=== PATIENT | female | born 1985 | race Caucasian/White ===

== ENCOUNTER 2022-04-05 12:42 | Outpatient (REF) | payer MEDICAID, SELFPAY | END 2022-04-05 12:43 | disposition home or self-care (01) | LOC: HO.SH 12:42 | PROVIDERS: Visit Provider Nurse Practitioner Family | DX: H93.293 Other abnormal auditory perceptions, bilateral (principal) | CPT/HCPCS: 92557; 92567 ==

== ENCOUNTER 2022-04-09 21:30 | Emergency (ER) | payer MEDICAID, SELFPAY ==
[2022-04-09 21:57] VITALS: BP 120/84; BP 138/90; PULSE 109; PULSE 96; RESP 16; TEMP 36.7; O2SAT 98; BMI 33.7
--- OUTSIDE RECORDS SUMMARY | 2022-04-09 22:09 | XMS_ITS | Continuity of Care Document ---
:1985 Author Organization [facility] nter Address [address] [place] [address]- Care Team Providers Name Role Phone Not on Staff, PCP Primary Care Physician Unavailable [place] [facility] [place](s[place] 01/29/21 - 01/30/[address] [address]- Encounter Diagnosis Status epilepticus (Final) - 01/30/21 Prolonged QT interval (Final) - 01/30/21 Facial contusion (Final) - 01/30/21 Noncompliance with medication regimen (Final) - 01/30/21 Discharge Disposition: Transferred to short-term general hospit Attending Physician: Michael Jarvis MD Admitting Physician: Michael Jarvis MD Referring Physician: Not on Staff, Referring MD Allergies, Adverse Reactions, Alerts Substance Reaction Severity Status Vicodin Active Percocet 5/325 Active Medications Dilantin 100 mg oral capsule, extended release 2 capsule = 200 mg, By Mouth, 2 times a day, # 120 capsule, 0 Refills, Maintenance, 06/29/19 0:31:00EDT, ER Capsule, [facility], 163, cm, 06/28/19 23:16:00 EDT, Height, 91, kg, 06/28/19 23:16:00 EDT, Dry Weight Start Date: 06/29/19 Status: Ordered Problem List Condition Effective Dates Status Health Status Informant Seizures(Confirmed) Active Results Radiology Reports Exam Date Time Procedure Performing Provider Status 01/30/21 3:04 AM Chest Portable Erica Dimas (Anay williamson) Notes:(Chest Portable) Reason For Exam: Shortness of BreathRESULT: Chest Portable Chest Portable Hx of Present Illness: many seizures tonight, total of 10 versed en route by EMS; Reason: Shortness of Breath; Clinical Question(s): CHF COMPARISON: None. FINDINGS: LINES AND TUBES: Endotracheal tube tip is approximately 0.8 cm above the nancy. Enteric tube courses below the hemidiaphragm into the stomach and off of this image inferiorly. LUNGS AND PLEURA: The lungs are hypoinflated with resultant bronchovascular crowding. Left retrocardiac opacity likelyrepresents atelectasis in the setting of low lung volumes. No pleural effusion. No pneumothorax. HEART, MEDIASTINUM AND ARY: Heart is normal in size. Normal upper mediastinal and hilar contour. BONES AND SOFT TISSUES: No acute abnormality. IMPRESSION: Endotracheal tube tip 0.8 cm above the nancy. Recommend withdrawal by at least 2-3 cm. Notification was sent to the clinical team on subsequent chest x-ray on 01/30/2021 regarding endotracheal tube position. WSN: [id number] Ordering Physician: Michael Jarvis Dictated By: Keila Lorenzo MD Dictated Date/Time: 01/30/21 8:19 am Reviewed By: Keila Lorenzo MD Signed By: Keila Lorenzo MD Signed Date/Time: 01/30/21 8:19 am Transcribed By: KATHIE Transcribed Date/Time: 01/30/21 8:17 am Vital Signs Most recent to oldest 1 2 3 [Reference Range]: Height 163 cm (01/29/21 11:53 PM) Weight 86.5 kg (01/29/21 11:53 PM) Oxygen Saturation [94-100 100 % 96 % 100 % %] (01/30/21 3:02 AM) (01/30/21 2:45 AM) (01/30/21 2:2 8 AM) Pulse Rate [55-90 bpm] 105 bpm 98 bpm 99 bpm *H* *H* *H* (01/30/21 2:28 AM) (01/30/21 2:00 AM) (01/30/21 1:1 5 AM) Blood Pressure 114/91 mm Hg 109/90 mm Hg 97/57 mm Hg [90-138/55-84 mm Hg] (01/30/21 3:02 AM) (01/30/21 2:28 AM) ( 1 2:00 AM) Respiratory Rate [16-30 18 br/min 24 br/min 24 br/mi n br/min] (01/30/21 3:02 AM) (01/30/21 2:28 AM) (01/30/21 1:1 5 AM) Temperature [96.8-100.4 97.9 DegF DegF] (01/29/21 11:53 PM) Mode of Delivery (Oxygen) Ventilator Other: bag mask Room a ir (01/30/21 3:02 AM) (01/30/21 2:28 AM) (01/30/21 2:0 0 AM) Temperature Route Oral (01/29/21 11:53 PM) Dry Weight 86.5 kg (01/29/21 11:53 PM) Weight Obtained Via Patient/family stated (01/29/21 11:53 PM)
--- OUTSIDE RECORDS SUMMARY | 2022-04-09 22:09 | XMS_ITS | Continuity of Care Document ---
:1985 Author Organization [facility] Address [address] [place] [address]- Care Team Providers Name Role Phone Not on Staff, PCP Primary Care Physician Unavailable Encounter [facility] Date(s): 01/30/21 - 02/01/[address] [address] Discharge Disposition: A-D/C Home Attending Physician: Lolly Suarez DO Admitting Physician: Melody Blair MD Referring Physician: Not on Staff, Referring MD Allergies, Adverse Reactions, Alerts Substance Reaction Severity Status Vicodin Active Percocet 5/325 Active Medications Keppra 500 mg oral tablet 1.5 tablet = 750 mg, By Mouth, Every 12 hours, # 90 tablet, 2 Refills, Maintenance, 02/01/21 12:13:00 EST, Tablet, [facility], Partial fill upon patient request if the prescription is fora schedule II opioid drug., 163, cm, 01/29/21 23:... Start Date: 02/01/21 Stop Date: 05/02/21 Status: Ordered Problem List Condition Effective Dates Status Health Status Informant Seizures(Confirmed) Active Results Radiology Reports Exam Date Time Procedure Performing Provider Status 01/30/21 6:37 AM Chest Portable Nadeem Nicholas (Verified) Notes:(Chest Portable) Reason For Exam: Tube PlacementRESULT: Chest Portable Chest Portable Reason: Tube Placement; Clinical Question(s): Tube Placement COMPARISON: 01/30/2021, 08/27/2008 FINDINGS: LINES AND TUBES: Endotracheal tube tip is approximately 0.9 cm above the nancy. Enteric tube courses below the hemidiaphragm into the stomach and off of the image inferiorly. LUNGS AND PLEURA: Low lung volumes. Improved aeration in the left lung base compared with most recent prior. No pleural effusion. No pneumothorax. HEART, MEDIASTINUM AND ARY: Heart is normal in size. Normal upper mediastinal and hilar contour. BONES AND SOFT TISSUES: No acute abnormality. IMPRESSION: Endotracheal tube tip remains low at 0.9 cm above the nancy. Recommend repositioning, withdrawal byapproximately 2-3 cm. Low lung volumes. Improved left basilar atelectasis. A [place] message has been communicated via the [employer] system on 01/30/2021 8:21 AM, Message ID [id number]. WSN: [id number] Ordering Physician: Joaquim Wyman Dictated By: Keila Lorenzo MD Dictated Date/Time: 01/30/21 8:21 am Reviewed By: Keila Lorenzo MD Signed By: Keila Lorenzo MD Signed Date/Time: 01/30/21 8:21 am Transcribed By: KATHIE Transcribed Date/Time: 01/30/21 8:19 am Vital Signs Most recent to oldest 1 2 3 [Reference Range]: Weight 86.5 kg 87.0 kg (01/30/21 9:22 AM) (01/30/21 5:00 AM) Oxygen Saturation [94-100 %] 98 % 98 % 99 % (02/01/21 11:18 AM) (02/01/21 8:09 AM) (02/01/21 12 :33 AM) Pulse Rate [55-90 bpm] 92 bpm 87 bpm 91 bpm *H* (02/01/21 8:09 AM) *H* (02/01/21 11:18 AM) (02/01/21 12:3 3 AM) Blood Pressure [90-138/55-84 118/76 mm Hg 106/58 mm Hg 113 /68 mm Hg mm Hg] (02/01/21 11:18 AM) (02/01/21 8:09 AM) (02/01/21 12 :33 AM) Respiratory Rate [16-30 16 br/min 17 br/min 19 br/mi n br/min] (02/01/21 11:18 AM) (02/01/21 8:09 AM) (02/01/21 12 :33 AM) Temperature [96.8-100.4 97.7 DegF 97.4 DegF 98.1 Deg F DegF] (02/01/21 11:18 AM) (02/01/21 8:09 AM) (02/01/21 12 :33 AM) Liters per Minute 2 L/min 2 L/min 2 L/min (01/31/21 1:00 PM) (01/31/21 12:00 PM) (01/31/21 11 :00 AM) Mode of Delivery (Oxygen) Room air Room air Room a ir (02/01/21 11:18 AM) (02/01/21 8:09 AM) (02/01/21 12 :33 AM) Blood pressure sites Arm, left Arm, left Arm, left (02/01/21 11:18 AM) (02/01/21 8:09 AM) (02/01/21 12 :33 AM) Temperature Route Temporal Temporal Temporal (02/01/21 11:18 AM) (02/01/21 8:09 AM) (02/01/21 12 :33 AM) Weight Obtained Via Bed scale Bed scale (01/30/21 9:22 AM) (01/30/21 5:00 AM)
--- OUTSIDE RECORDS SUMMARY | 2022-04-09 22:09 | XMS_ITS | Continuity of Care Document ---
:1985 Author Organization [facility] nter Address [address] [place] [address]- Care Team Providers Name Role Phone Not on Staff, PCP Primary Care Physician Unavailable Encounter [facility] [place] Date(s): 04/04/19 - 04/04/[address] [address] [phone] Encounter Diagnosis Ingrown left big toenail (Final) - 04/04/19 Hx of seizure disorder (Final) - 04/04/19 History of depression (Final) - 04/04/19 Discharge Disposition: A-D/C Home Attending Physician: Omid Silva MD Admitting Physician: Omid Silva MD Referring Physician: Not on Staff, Referring MD Allergies, Adverse Reactions, Alerts Substance Reaction Severity Status Vicodin Active Percocet 5/325 Active Medications CeleXA 20 mg oral tablet 20 mg, 1, tablet, By Mouth, Daily, # 30 tablet, Refills 0, Tot. Refills 0, Maintenance, 04/04/19 14:15:00 EST, Route to Pharmacy Electronically, [facility], 163, cm, 04/04/19 12:37:00 EST, Height, 96.9, kg, 04/04/19 12:37:00 EST, Dry Weight Start Date: 04/04/19 Status: OrderedCelexa Tablet 20, mg, By Mouth, Daily, 0, 0, 07/24/06 13:11:12, [id number] Start Date: 07/24/06 Status: OrderedDilantin 100 mg oral capsule, extended release 2 capsule = 200 mg, By Mouth, 2 times a day, 0 Refills, Maintenance, 04/04/19 12:42:00 EST Start Date: 04/04/19 Status: OrderedDilantin 100 mg oral capsule, extended release 1 capsule = 100 mg, By Mouth, 2 times a day, # 60 capsule, 0 Refills, Maintenance, 04/04/19 14:15:00EST, [facility], 163, cm, 04/04/19 12:37:00 EST, Height, 96.9, kg, 04/04/19 12:37:00 EST,Dry Weight Start Date: 04/04/19 Stop Date: 05/04/19 Status: OrderedKeflex monohydrate 500 mg oral capsule 1 capsule = 500 mg, By Mouth, 4 times a day, # 28 capsule, 0 Refills, Maintenance, 04/04/19 14:14:00EST, Capsule, [facility], 163, cm, 04/04/19 12:37:00 EST, Height, 96.9, kg, 04/04/19 12:37:00 EST, Dry Weight Start Date: 04/04/19 Stop Date: 04/11/19 Status: Orderedmupirocin 2% topical ointment 1 application, Topically, 3 times a day, for 5 days, # 15 Gm, 0 Refills, Acute 04/09/19 14:14:00 EST, 04/04/19 14:14:00 EST, Ointment, [facility], 1 application Topically 3 times a day,x5 days, 163, cm, 04/04/19 12:37:00 EST, Height, 96.9,... Start Date: 04/04/19 Stop Date: 04/09/19 Status: Ordered Vital Signs Most recent to oldest [Reference Range]: 1 Height 163 cm (04/04/19 12:37 PM) Weight 96.9 kg (04/04/19 12:37 PM) Temperature Route Oral (04/04/19 12:37 PM) Dry Weight 96.9 kg (04/04/19 12:37 PM)
--- OUTSIDE RECORDS SUMMARY | 2022-04-09 22:09 | XMS_ITS | Continuity of Care Document ---
:1985 Author Organization [facility] Address [address] [place] [address], [address] [facility], [address] [place] [address]- Care Team Providers Name Role Phone Not on Staff, PCP Primary Care Physician Unavailable Encounter [facility] Date(s): 06/30/19 - 07/30/19 [facility], 3rd Floor, [address] [place] [address]- [facility] Attending Physician: Thony Kaiser Admitting Physician: AdmtrThony Referring Physician: Admtr, Ar8 Allergies, Adverse Reactions, Alerts Substance Reaction Severity Status Vicodin Active Percocet 5/325 Active Medications Dilantin 100 mg oral capsule, extended release 2 capsule = 200 mg, By Mouth, 2 times a day, # 120 capsule, 0 Refills, Maintenance, 06/29/19 0:31:00EDT, ER Capsule, [facility], 163, cm, 06/28/19 23:16:00 EDT, Height, 91, kg, 06/28/19 23:16:00 EDT, Dry Weight Start Date: 06/29/19 Status: Ordered
--- OUTSIDE RECORDS SUMMARY | 2022-04-09 22:09 | XMS_ITS | Continuity of Care Document ---
:1985 Author Organization [facility] Address [address] [facility], 3rd Floor, [address] [place] [address]- Care Team Providers Name Role Phone Barry WILL, Madeline Hassan Primary Care Physician [phone] Encounter [facility] [place] Date(s): 11/29/21 - 12/29/21 [facility] [address] [place], [address]rd Floor, [address] [place] [address]- Allergies, Adverse Reactions, Alerts Substance Reaction Severity Status Vicodin Active Percocet 5/325 Active Medications Keppra 500 mg oral tablet 1.5 tablet = 750 mg, By Mouth, Every 12 hours, # 90 tablet, 1 Refills, Maintenance, 07/07/21 14:36:00 EDT, Tablet, [facility], Partial fill upon patient request if the prescription is for a schedule II opioid drug., 163, cm, 07/07/21 14:00:... Start Date: 07/07/21 Stop Date: 09/05/21 Status: Orderedlamotrigine 100 mg oral tablet 100 mg, 1, tablet, By Mouth, 2 times a day, # 60 tablet, Refills 5, Tot. Refills 5, Maintenance, 08/11/21 15:38:00 EDT, Route to Pharmacy Electronically, [facility], Partial fill upon patient request if the prescription is for a schedule II... Start Date: 08/11/21 Status: Ordered Problem List Condition Confirmation Course Effective Dates Status Health Stat us Informant Obese class I Confirmed Active Seizures Confirmed Active Patient Care team information PersonnelName: Madeline Reddy RN Address: Address: [address] [place] [address]
--- OUTSIDE RECORDS SUMMARY | 2022-04-09 22:09 | XMS_ITS | Continuity of Care Document ---
:1985 Author Organization [facility] nter Address [address] [place] [address]- Care Team Providers Name Role Phone Not on Staff, PCP Primary Care Physician Unavailable [place] [facility] [place] Date(s): 06/28/19 - 06/29/[address] [address] [phone] Encounter Diagnosis Seizure (Final) - 06/29/19 Discharge Disposition: A-D/C Home Attending Physician: Vidal Coates MD Admitting Physician: Vidal Coates MD Referring Physician: Not on Staff, Referring MD Allergies, Adverse Reactions, Alerts Substance Reaction Severity Status Vicodin Active Percocet 5/325 Active Medications CeleXA 20 mg oral tablet 20 mg, 1, tablet, By Mouth, Daily, # 30 tablet, Refills 0, Tot. Refills 0, Maintenance, 04/04/19 14:15:00 EST, Route to Pharmacy Electronically, [facility], 163, cm, 04/04/19 12:37:00 EST, Height, 96.9, kg, 04/04/19 12:37:00 EST, Dry Weight Start Date: 04/04/19 Status: OrderedCelexa Tablet 20, mg, By Mouth, Daily, 0, 0, 07/24/06 13:11:12, [id number] Start Date: 07/24/06 Status: OrderedDilantin 100 mg oral capsule, extended release 1 capsule = 100 mg, By Mouth, 2 times a day, # 60 capsule, 0 Refills, Maintenance, 04/04/19 14:15:00EST, [facility], 163, cm, 04/04/19 12:37:00 EST, Height, 96.9, kg, 04/04/19 12:37:00 EST,Dry Weight Start Date: 04/04/19 Stop Date: 05/04/19 Status: OrderedDilantin 100 mg oral capsule, extended release 2 capsule = 200 mg, By Mouth, 2 times a day, # 120 capsule, 0 Refills, Maintenance, 06/29/19 0:31:00EDT, ER Capsule, [facility], 163, cm, 06/28/19 23:16:00 EDT, Height, 91, kg, 06/28/19 23:16:00 EDT, Dry Weight Start Date: 06/29/19 Status: OrderedKeflex monohydrate 500 mg oral capsule 1 capsule = 500 mg, By Mouth, 4 times a day, # 28 capsule, 0 Refills, Maintenance, 04/04/19 14:14:00EST, Capsule, [facility], 163, cm, 04/04/19 12:37:00 EST, Height, 96.9, kg, 04/04/19 12:37:00 EST, Dry Weight Start Date: 04/04/19 Stop Date: 04/11/19 Status: Ordered Vital Signs Most recent to oldest [Reference Range]: 1 2 Height 163 cm 163 cm (06/29/19 12:51 AM) (06/28/19 11:16 PM) Weight 91 kg 91 kg (06/29/19 12:51 AM) (06/28/19 11:16 PM) Oxygen Saturation [94-100 %] 99 % 98 % (06/29/19 12:51 AM) (06/28/19 11:16 PM) Pulse Rate [55-90 bpm] 87 bpm 98 bpm (06/29/19 12:51 AM) *H* (06/28/19 11:16 PM) Body Mass Index [18.5-24.99] 34.25 *>HHI* (06/29/19 12:51 AM) Blood Pressure [90-138/55-84 mm Hg] 110/66 mm Hg (06/29/19 12:51 AM) Respiratory Rate [16-30 br/min] 19 br/min 22 br/mi n (06/29/19 12:51 AM) (06/28/19 11:16 PM) Mode of Delivery (Oxygen) Room air Room air (06/29/19 12:51 AM) (06/28/19 11:16 PM) Blood pressure sites Arm, left (06/29/19 12:51 AM) Dry Weight 91 kg 91 kg (06/29/19 12:51 AM) (06/28/19 11:16 PM)
--- OUTSIDE RECORDS SUMMARY | 2022-04-09 22:09 | XMS_ITS | Continuity of Care Document ---
:1985 Author Organization [facility] Address Unavailable , Care Team Providers Name Role Phone Barry WILL, May Sonya Primary Care Physician Encounter [facility] [place] Date(s): 06/23/21 - 07/23/21 [facility] Allergies, Adverse Reactions, Alerts Substance Reaction Severity Status Vicodin Active Percocet 5/325 Active Medications Keppra 500 mg oral tablet 1.5 tablet = 750 mg, By Mouth, Every 12 hours, # 90 tablet, 1 Refills, Maintenance, 07/07/21 14:36:00 EDT, Tablet, [facility], Partial fill upon patient request if the prescription is for a schedule II opioid drug., 163, cm, 07/07/21 14:00:... Start Date: 07/07/21 Stop Date: 09/05/21 Status: Orderedlamotrigine 25 mg oral tablet 75 mg, 3, tablet, By Mouth, 2 times a day, # 180 tablet, Refills 5, Tot. Refills 5, Maintenance, 07/07/21 14:31:00 EDT, Route to Pharmacy Electronically, [facility], Partial fill upon patient request if the prescription is for a schedule II... Start Date: 07/07/21 Stop Date: 01/03/22 Status: OrderedVitamin B6 100 mg oral tablet 1 tablet = 100 mg, By Mouth, Daily, for 30 days, # 30 tablet, 2 Refills, Acute 10/05/21 14:32:00 EDT, 07/07/21 14:32:00 EDT, [facility], Partial fill upon patient request if the prescriptionis for a schedule II opioid drug., 163, cm, 07/07... Start Date: 07/07/21 Stop Date: 10/05/21 Status: Ordered Problem List Condition Effective Dates Status Health Status Informant Obese class I(Confirmed) Active Seizures(Confirmed) Active
--- OUTSIDE RECORDS SUMMARY | 2022-04-09 22:09 | XMS_ITS | Continuity of Care Document ---
:1985 Author Organization [facility] nter Address [address] [place] [address]- Care Team Providers Name Role Phone Not on Staff, PCP Primary Care Physician Unavailable Encounter [facility] [place] Date(s): 08/11/19 - 08/11/[address] [address] [phone] Encounter Diagnosis Anxiety (Final) - 08/11/19 Seizure disorder (Final) - 08/11/19 Discharge Disposition: A-D/C Home Attending Physician: Michael Jarvis MD Admitting Physician: Michael Jarvis MD Referring Physician: Not on Staff, Referring MD Allergies, Adverse Reactions, Alerts Substance Reaction Severity Status Vicodin Active Percocet 5/325 Active Medications Dilantin 100 mg oral capsule, extended release 2 capsule = 200 mg, By Mouth, 2 times a day, # 120 capsule, 0 Refills, Maintenance, 06/29/19 0:31:00EDT, ER Capsule, [facility], 163, cm, 06/28/19 23:16:00 EDT, Height, 91, kg, 06/28/19 23:16:00 EDT, Dry Weight Start Date: 06/29/19 Status: Ordered Vital Signs Most recent to oldest [Reference Range]: 1 2 Height 163 cm 163 cm (08/11/19 12:19 PM) (08/11/19 12:10 PM) Weight 86.2 kg 86.2 kg (08/11/19 12:19 PM) (08/11/19 12:10 PM) Oxygen Saturation [94-100 %] 100 % 99 % (08/11/19 3:00 PM) (08/11/19 12:19 PM) Pulse Rate [55-90 bpm] 71 bpm 75 bpm (08/11/19 3:00 PM) (08/11/19 12:19 PM) Body Mass Index [18.5-24.99] 32.44 *>HHI* (08/11/19 12:19 PM) Blood Pressure [90-138/55-84 mm Hg] 106/72 mm Hg 119/ 83 mm Hg (08/11/19 3:00 PM) (08/11/19 12:19 PM) Respiratory Rate [16-30 br/min] 18 br/min 15 br/mi n (08/11/19 3:00 PM) *L* (08/11/19 12:19 PM) Temperature [96.8-100.4 DegF] 98.4 DegF (08/11/19 12:19 PM) Mode of Delivery (Oxygen) Room air Room air (08/11/19 3:00 PM) (08/11/19 12:19 PM) Blood pressure sites Arm, right (08/11/19 12:19 PM) Temperature Route Oral (08/11/19 12:19 PM) Dry Weight 86.2 kg 86.2 kg (08/11/19 12:19 PM) (08/11/19 12:10 PM) Weight Obtained Via Patient/family stated (08/11/19 12:10 PM) Dry Weight Obtained Via Patient/family stated (08/11/19 12:10 PM)
--- OUTSIDE RECORDS SUMMARY | 2022-04-09 22:09 | XMS_ITS | Continuity of Care Document ---
:1985 Author Organization [facility] Address Unavailable , Care Team Providers Name Role Phone Barry WILL, May Sonya Primary Care Physician Encounter [facility] [place] Date(s): 07/07/21 - 08/06/21 [facility] Attending Physician: Thony Kaiser Admitting Physician: Thony Kaiser Referring Physician: Thony Kaiser Allergies, Adverse Reactions, Alerts Substance Reaction Severity Status Vicodin Active Percocet 5/325 Active Medications Keppra 500 mg oral tablet 1.5 tablet = 750 mg, By Mouth, Every 12 hours, # 90 tablet, 1 Refills, Maintenance, 07/07/21 14:36:00 EDT, Tablet, [facility], Partial fill upon patient request if the prescription is for a schedule II opioid drug., 163, cm, 07/07/21 14:00:... Start Date: 07/07/21 Stop Date: 09/05/21 Status: Orderedlamotrigine 25 mg oral tablet 75 mg, 3, tablet, By Mouth, 2 times a day, # 180 tablet, Refills 5, Tot. Refills 5, Maintenance, 07/07/21 14:31:00 EDT, Route to Pharmacy Electronically, [facility], Partial fill upon patient request if the prescription is for a schedule II... Start Date: 07/07/21 Stop Date: 01/03/22 Status: OrderedVitamin B6 100 mg oral tablet 1 tablet = 100 mg, By Mouth, Daily, for 30 days, # 30 tablet, 2 Refills, Acute 10/05/21 14:32:00 EDT, 07/07/21 14:32:00 EDT, [facility], Partial fill upon patient request if the prescriptionis for a schedule II opioid drug., 163, cm, 07/07... Start Date: 07/07/21 Stop Date: 10/05/21 Status: Ordered Problem List Condition Effective Dates Status Health Status Informant Obese class I(Confirmed) Active Seizures(Confirmed) Active
== END 2022-04-09 22:17 | disposition left against medical advice (07) ==
PROVIDERS: Emergency Provider Emergency Medicine
DX: M25.552 Pain in left hip (principal)
CPT/HCPCS: 99281

== ENCOUNTER 2022-08-31 18:57 | Emergency (ER) | payer OTHER, SELFPAY ==
[2022-08-31 19:17] VITALS: BP 153/97; PULSE 115; RESP 18; TEMP 36.6; O2SAT 98
--- NOTE | 2022-08-31 19:17 | ED.GENADULT ---
HPI - General Adult General Chief complaint: Upper Respiratory Symptoms Stated complaint: sinus infection, white spots on throat/ sore Time Seen by Provider: 08/31/22 20:16 Source: patient Mode of arrival: ambulatory Limitations: no limitations History of Present Illness HPI narrative: Patient is a 37-year-old female who presents emergency department for evaluation. Patient has had an ongoing sinus infection reportedly for the past 1.5 months. She was evaluated by her primary care provider yesterday she was also developing a sore throat at that time, she had been given a prescription for Augmentin in addition to prednisone. Patient states that today her throat felt worse and she noticed ?white spots? on the back of her throat which prompted her concern to come to the emergency department. She denies fevers, chills, difficulty swallowing, chest pain, shortness of breath, difficulty breathing, numbness or tingling, weakness, nausea, vomiting, abdominal pain. Related Data Allergies Allergy/AdvReac Type Severity Reaction Status Date / Time From Percocet AdvReac Unknown NAUSEA & Uncoded 08/31/22 19:17 VOMITING From Vicodin AdvReac Unknown NAUSEA & Uncoded 08/31/22 19:17 VOMITING Review of Systems Review of Systems: Constitutional: No fever. No chills. No weakness. No fatigue. ENT/ Mouth: No Ear Pain, positive Nasal Congestion, positive sore throat, No Rhinorrhea, No Swallowing Difficulty Skin: No rash or itching. Cardiovascular: No chest pain. No palpitations. Respiratory: No shortness of breath. Positive cough. No sputum production. Gastrointestinal: No nausea. No vomiting. No diarrhea. No abdominal pain. Genitourinary: No burning micturition. No urinary frequency. Neurologic: No headache. No dizziness. No syncope. No numbness or tingling in the extremities. Musculoskeletal: No muscle pain. No back pain. No joint pain or stiffness. Yes all other systems are reviewed and are negative PMFSH Past Medical History Attestation statement: The following information was validated with the patient. Source: old records reviewed Social History Social History Advance Directives: No Advance Directives Information Provided: No Physical Exam ED Vital Signs: Vital Signs - 24 hr 08/31/22 19:17 08/31/22 20:30 Temperature 97.9 F 97.6 F Pulse Rate 115 H 106 H Respiratory Rate 18 24 H Blood Pressure 153/97 H 141/92 H Pulse Oximetry 98 100 Oxygen Delivery Method Room Air Room Air BMI result Body Mass Index 30.0 Appearance: Alert.?Oriented to person, place and time. No acute distress.?Normal affect. Eyes: Pupils equal, round and reactive to light.? ENT: Pharynx mildly erythematous without exudates or evidence of abscess. No trismus. No drooling. Uvula is midline..? Bilateral maxillary and frontal sinus tenderness upon palpation. TM normal bilaterally. ? Neck: Normal inspection.? Neck supple.?? CVS: Heart sounds normal. Normal heart rate and rhythm.? Pulses normal.?? Respiratory: No respiratory distress.? Lung sounds clear to auscultation bilaterally?? Abdomen: Soft and non-tender. Normoactive bowel sounds. ?? Skin: Skin warm and dry.? Normal skin color.? Extremities: No lower extremity edema.? Neuro: Moves all extremities spontaneously. Sensation intact bilaterally. No focal neuro deficits. Ambulates with normal steady gait. Course Course Course Narrative: This is an RME: Additional HPI, ROS, PE not included below will be deferred to primary provider. This is a [id number]-female, with a past medical history of epilepsy, presenting to the emergency department with complaints of nasal congestion x 1.5 months. Patient was seen by an urgent care yesterday who diagnosed her with a sinus infection and was started on augmentin, prednisone and saline spray yesterday. Reports worsening sore throat. Not tested for strep throat or covid. Plan: strep and COVID Medical Decision Making Medical Decision Making MDM Narrative: Patient is a 37-year-old female, presenting for evaluation of pharyngitis with recent diagnosis of sinusitis. COVID-19 testing negative. She had a chest x-ray obtained from rapid medical examination which reveals no acute cardiopulmonary process. Strep testing is negative. No evidence of peritonsillar or retropharyngeal abscess. At this time history and physical exam not consistent with pneumonia. Well-appearing, nontoxic, afebrile, or tachypnea/hypoxia. She is mildly tachycardic at the time my examination but she expresses feeling anxious, in addition she is also taking prednisone. Speaking clear full sentences, ambulatory with steady gait. Discussed continued management with Augmentin, provided reassurance that this would also cover bacterial pharyngitis pathogens, patient felt reassured with this. We reviewed conservative treatment including rest, hydration, Tylenol/ibuprofen as needed for fever and body aches, saline nasal spray, humidifier, [id number] cold medication. Advised to follow-up with primary care provider as needed, discussed reasons to return back to the emergency department. All questions were answered. Patient discharged home in stable condition. Differential Diagnosis Differential Diagnoses: The differential diagnosis associated with the presentation includes (As noted above) Lab Data MDM Lab Attestation statement: I reviewed the patient's lab results. (As noted above) Labs: Lab Results 08/31/22 08/31/22 Range/Units 20:05 20:05 COVID-19 (RICHARD) Negative (Negative) COVID-19 Clin Com See Note S. pyogenes GrpA ANGELA Negative (Negative) External Record Review External record reviewed: Outpatient record and Prior outpatient labs Tests considered The following testing was considered but not selected: I considered CBC and BMP in addition to CT imaging of the soft tissue next to evaluate for peritonsillar retropharyngeal abscess, however based on physical examination do not feel this is warranted at this time. Prescription Management I considered prescription management with: Pain Medication and Antibiotic (Continued use of Augmentin as prescribed outpatient) Discharge Plan Discharge Clinical Impression: Sinusitis, Pharyngitis Patient Disposition: Home, Self-Care Additional Instructions: Continue taking antibiotics and prednisone as prescribed by your primary care provider. Please follow-up with them for persistent symptoms and management. You may return back to emergency department with any new or worsening symptoms or concerns. Referrals: Madeline Reddy, [facility], [employer], [employer] [Primary Care Provider] -
[2022-08-31 20:30] VITALS: BP 141/92; PULSE 106; RESP 24; TEMP 36.4; O2SAT 100
== END 2022-08-31 22:32 | disposition home or self-care (01) ==
PROVIDERS: Emergency Provider Student in an Organized Health Care Education/Training Program; PCP Nurse Practitioner Family
DX: J32.9 Chronic sinusitis, unspecified (principal); J02.9 Acute pharyngitis, unspecified; Z20.822 Contact with and (suspected) exposure to COVID-19
CPT/HCPCS: 71046; 87635; 87651; 99282; 99283

== ENCOUNTER 2022-10-31 12:48 | Emergency (ER) | payer OTHER, SELFPAY ==
--- NOTE | ~2022-10-31 | XR_ITS ---
EXAMINATION: XR HAND, LEFT CLINICAL INFORMATION: Left thumb pain. Trauma. COMPARISON: None available. TECHNIQUE: PA, lateral, and oblique views of the left hand. FINDINGS: There is a subtle lucency in cortex near the base of the distal phalanx of the thumb. Correlate for any pain in this specific area. Otherwise, the bones and soft tissues are unremarkable. Alignment is anatomic. Joint spaces are maintained. No erosions or soft tissue calcifications. XR/XR hand LT min 3V IMPRESSION: A subtle nondisplaced, incomplete fracture of the proximal metaphysis of the distal phalanx of the thumb is suspected.
[2022-10-31 12:59] VITALS: BP 127/84; PULSE 100; RESP 18; TEMP 36.4; O2SAT 99; BMI 28.3
[2022-10-31] MEDS: Ibuprofen 600 MG TABLET PO (13:25)
--- OUTSIDE RECORDS SUMMARY | 2022-10-31 13:25 | XMS_ITS | Continuity of Care Document ---
Author Name Unknown Organization [facility] ter Address [address] [place] [id number]- Care Team Providers Care Appeals Manager Name Role Phone Barry RN, May Sonya Primary Care Ph ysician [place] [facility] - 09/29/[address] [address]- Encounter Diagnosis Manic episode(Final) - 09/29/22 Discharge Disposition: Transfer to [facility] Attending Physician: Nikolay Kim MD Admitting Physician: Nikolay Kmi MD Referring Physician: Not on Staff, Referring MD Allergies, Adverse Reactions, Alerts Substance Reaction Severity Status Vicodin Active Percocet 5/325 Active Medications busPIRone 5 mg oral tablet 5 mg, 1, tablet, By Mouth, 3 times a day, Refills 0, Maintenance, 09/29/22 18:14:00 EDT, Partial fill upon patient request if the prescription is for a schedule II opioid drug. Start Date: 09/29/22 Status: Ordered ibuprofen 800 mg oral tablet 800 mg, 1, tablet, By Mouth, 3 times a day, PRN, Refills 0, Maintenance, Pain , Moderate, 09/29/22 18:14:00 EDT, Partial fill upon patient request if the prescription is for a schedule II opioid drug. Start Date: 09/29/22 Status: Ordered lamotrigine 100 mg oral tablet 100 mg, 1, tablet, By Mouth, 2 times a day Start Date: 05/12/22 Status: Ordered levETIRAcetam 500 mg oral tablet 1.5 tablet = 750 mg, By Mouth, 2 times a day Start Date: 05/12/22 Status: Ordered SEROquel 50 mg oral tablet 1 tablet = 50 mg, By Mouth, Daily at bedtime, 0 Refills, Maintenance, 09/29/22 18:14:00 EDT, Partial fill upon patient request if the prescription is for a schedule II opioid drug. Start Date: 09/29/22 Status: Ordered Topamax 25 mg oral tablet 1 tablet = 25 mg, By Mouth, 2 times a day, 0 Refills, Maintenance, 09/29/22 18:14:00 EDT, Partial fill upon patient request if the prescription is for a schedule II opioid drug. Start Date: 09/29/22 Status: Ordered ZyrTEC 10 mg oral tablet 1 tablet = 10 mg, By Mouth, Daily, 0 Refills, Maintenance, 09/29/22 18:13:00 EDT, Partial fill uponpatient request if the prescription is for a schedule II opioid drug. Start Date: 09/29/22 Status: Ordered Problem List Condition Confirmation Course Effective Dates Status Health [facility] Informant Seizures Confirmed Active Vital Signs Most recent to oldest [Reference Range]: 1 2 3 Height 163 cm (09/29/22 1:09 PM) 163 cm (09/29/22 12:37 PM) Weight 78.5 kg (09/29/22 1:09 PM) 78.5 kg (09/29/22 12:37 PM) Oxygen Saturation [94-100 %] 100 % (09/29/22 7:49 PM) 98 % (09/29/22 6:06 PM) 98 % (09/29/22 12:37 PM) Pulse Rate [55-90 bpm] 89 bpm (09/29/22 7:49 PM) 78 bpm (09/29/22 6:06 PM) 97 bpm *H* (09/29/22 12:37 PM) Body Mass Index [18.5-24.99 kg/m2] 29.55 kg/m2 *H* (09/29/22 12:37 PM) Blood Pressure [90-138/55-84 mm Hg] 118/61mm Hg (09/29/22 7:49 PM) 116/82mm Hg (09/29/22 6:06 PM) 109/75mm Hg (09/29/22 12:37 PM) Respiratory Rate [16-30 br/min] 17 br/min (09/29/22 7:49 PM) 18 br/min (09/29/22 6:06 PM) 18 br/min (09/29/22 12:37 PM) Temperature [96.8-100.4 DegF] 98.1 DegF (09/29/22 7:49 PM) 97.8 DegF (09/29/22 6:06 PM) 98.6 DegF (09/29/22 12:37 PM) Mode of Delivery (Oxygen) Room air (09/29/22 7:49 PM) Room air (09/29/22 6:06 PM) Room air (09/29/22 12:37 PM) Blood pressure sites Arm, right (09/29/22 7:49 PM) Arm, right (09/29/22 6:06 PM) Arm, left (09/29/22 12:37 PM) Temperature Route Oral (09/29/22 7:49 PM) Oral (09/29/22 6:06 PM) Oral (09/29/22 12:37 PM) Dry Weight 78.5 kg (09/29/22 1:09 PM) 78.5 kg (09/29/22 12:37 PM) Social History Social History Type Response Smoking Status Former smoker, quit more than 30 days ago entered on: 09/29/22 Sex Consult note * Felisha WHITAKER, Ale Maguire: PERFORM, MODIFY Event Display: Consultation Note Authored Date: Patient: ??DANAE COOK ? Age:??37 Years?Sex:??Female?:??1985?? Chief Complaint/Reason for Consultation Manic behavior History of Present Illness Referring Physician:?Dr. Sampson ?? Chief Complaint / Reason for consult:?Medication management ?? Source of information:??Per patient,??[facility] records, crisis evaluations ?? Identifying information:?Danae is a 37 y.o. female who carries a diagnosis of alcohol use disorder (in remission since 04/2022), PTSD, unspecified bipolar spectrum disorder. Reports hx of depression, anxiety, and OCD symptoms. Has co- morbid diagnosis of epilepsy. ?? History of Present Illness:?Patient is known to the [facility] psychiatry service from prior consultations. She self [place] [facility] [place] due to reporting she is currently in a manic episode. Danae??reported that she has been talking with her therapist about her delirium ??and hallucinations and paranoia and her therapist feels she??needs more help right now. She noted that for 2 weeks she was off her mediations and then she started her medications again last week. ?? Per crisis eval: Danae reported that she??is working with her doctor's and therapist through [facility] and noted that her therapist told her she was making a referral to [facility] and I need to come here to the ER first. Danae is observed to be laughing at??inappropriate times during this assessment and reports that she has been having auditory and visual hallucinations of shadows and it may be from my ICU stay 2 years ago. She mentioned that she feels like??people are watching her and listening in on her and she ripped open her pillow recently because I thought there were microphones in it. She disclosed that she hasn't been home for the past few days and has been staying in a hotel??and has not been sleeping for the past 4 days and recently was using cocaine as well.??She mentioned using cocaine on Sunday this week. ?? Crisis spoke with pt's sister (Marcelina): who??reported that they have concerns about Danae's current mental status and noted that she has been threatening to take her life to them. Marcelina statedthat Danae will make these statements of if you don't find me too bad and turns off her phone. ?? Patient was subsequently medically cleared and referred to Crisis Services??for evaluation and assistance with disposition for potential inpatient psychiatric hospitalization. She is currently an inpatient bed search.??The emergency psychiatry service??was consulted for evaluation of psychotropic medication management. ?? I spoke with the patient this evening. She reports she has been having breakthrough seizures andhad a couple seizures the night before yesterday, was by herself, unsure how long they lasted butsays I??usually have gran mal seizures. 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 Describes her delirium as seeing shadows and still being able to hear stuff and not being able to move. She reports poor sleep, hasbeen up for the past 4 days. Energy has been high, I can stay up. Reports her anxiety has been high, worries about her and kids and wanting to get better. She denies feeling depressed. Says she has been more agitated but denies aggression.??Denies previous hx of delirium or psychotic symptoms prior to this incidence. She identifies stressors as her oldest daughter having a complicated / and??she and the baby are now living with her family. Says she has been sober since April 2022 from alcohol and this had previously been my quick easy fix to drown stuff out, however now thinks because I stopped drinking, it opened up room for a lot of stuff. Denies any recent self harming behaviors. Endorses passive SI over the last couple of days, denies plan or intent. Reports recent symptoms of paranoia, as she says she bought new ear plugs but noticed that when she tried to pair them, they were already green, so I knew they had already been paired, believes that someone conntected to my phone and says she could hear whispering when she wore her headphones. Reports I could hear the person messing with me, that part of it was real and it??triggers other stuff, i.e.??made her??think someone??was in the house, was checking rooms in the house etc. Also reports her appetite has been low. Feels safe in the ED setting. ?? Past Psychiatric History:?Per chart, she has previous diagnoses of PTSD and OCD traits (historicdiagnosis of OCD and describes counting compulsions (with a particular focus on 4 ), germophobia, and some ritualized behaviors in the bathroom such as when showering). ?? Past Hospitalizations:??Denies any inpatient??or partial hospitalizations as well as intensive outpatient treatments. ?? Past Suicidality / Aggression / Self-Injurious Behavior:??Reports history of passive SI but denies any suicidal gestures. Denies??engagement in NSSIB in the past. Denies any history of aggression. ?? Current psychotropic medications:?Seroquel 50 mg HS (non-adherent, re-started in ED setting), lamictal 100 mg BID (says this is for seizure prophylaxis and she was started on this to get off keppra, which has caused worsening mood sx, however she had breakthrough seizures off keppra). ?? Past Treatment Trials:??Sertraline (felt really high, prescribed 05/12/22 after ED??psych consult for OCD and PTSD), buspar (says it helped with anxiety), Celexa (poor sleep/appetite), fluoxetine (unclear effect, didn't agree with me ), trazodone (helpful for sleep but continued to have racing thoughts). ?? Treatment Providers:?Patient has a therapist, Amber, at [facility]. Psych Provider is Iain Mejias. ?? Substance Use Patient admits to recent cocaine use. Says she has abstained from alcohol since April 2022, has hx of daily drinking x one month, about 1/2 a handle of vodka, BAL 179 on ED visit 05/12/2022. ?? Social History ?? Living Situation -??she lives with her and 5 children (18, 13, 10, 8, and 2.5 years old).??Pt's oldest daughter??just has a baby and the is living with them. 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 ?? Family History:?? Reports grandmother has Alzheimer's. Denies family history of bipolar spectrum disorder. Review of Systems A full ROS was completed and was negative with the exception of pertinent positives noted in the history of the presenting illness (HPI) Objective Measurements?? Height: 163 cm (09/29/22) Weight: 78.5 kg (09/29/22) Dry Weight: 78.5 kg (09/29/22) Body Mass Index:??29.55 kg/m2??High (09/29/22) ? Vital Signs?? Temperature: 98.1 DegF (09/29/22 19:49:00) Temperature Route: Oral (09/29/22 19:49:00) Pulse Rate: 89 bpm (09/29/22 19:49:00) Respiratory Rate: 17 br/min (09/29/22 19:49:00) Systolic Blood Pressure: 118 mm Hg (09/29/22 19:49:00) Diastolic Blood Pressure: 61 mm Hg (09/29/22 19:49:00) Blood pressure sites: Arm, right (09/29/22 19:49:00) Mean Arterial Pressure: 86 mm Hg (09/29/22 12:37:00) Pulse Pressure: 57 mm Hg (09/29/22 19:49:00) Oxygen Saturation: 100 % (09/29/22 19:49:00) Mode of Delivery (Oxygen): Room air (09/29/22 19:49:00) ? Physical Exam Mental Status Exam Appearance: Hospital attire, tattoos, short buzzed hair, good hygiene Eye contact: Within normal limits Attitude: cooperative Motor Activity: Calm; absent of tics, tremors, psychomotor agitation, psychomotor slowing Mood: better Affect: expanisve range, appropriate Speech: Nonspontaneous, normal rate, low tone, latency, brief responses Perception: reports seeing shadows and hearing whispering when wearing headphones Orientation: Intact to person and place Memory: Grossly intact Thought Process: at times confused, difficult to follow logic Thought Content: Delusions, paranoia Medication Adherence: Impaired Reliability: Limited historian Insight: Impaired Judgment: Impaired?? Impulse control: Impaired Suicidality/Self-destructive Behavior: None currently, but recent passive SI without plan or intent Homicidality/Violence: None. Muscle strength/tone: Antigravity. No rigidity noted. Moving all four extremities spontaneously. Not observed ambulating. Assessment/Plan ?? Assessment:?In brief, this is a 37 y.o. female who carries a diagnosis of alcohol use disorder(in remission since 04/2022), PTSD, unspecified bipolar spectrum disorder. Reports hx of depression, anxiety, and OCD symptoms. Has co- morbid diagnosis of epilepsy. She [place] [facility] [place] due to manic presentation, i.e. hyposomnia, paranoia, left home and has been staying in a hotel, recent med non-adherence, perceptual disturbances. She has previous psych consult April 2022 due to heavy alcoholuse and increased symptoms anxiety. Has trauma history related to complications from her epilepsy. ?? Diagnoses: PTSD Alcohol Use Disorder (in sustained remission) Unspecified Bipolar Spectrum Disorder ?? Recommendations: -Disposition as per Crisis Services, albeit currently a bed search for inpatient psychiatric hospitalization. -Potential barriers to placement: None -Continue constant surgical dental assistant. Patient may NOT leave AMA without psychiatry clearance. -Continue lamictal 100 mg BID and seroquel 50 mg HS -Initiating Vistaril 50 mg PO Q6H PRN anxiety. Can also utilize Seroquel 25 mg PO Q6H PRN agitation.? -Follow-up expanded urine toxicology. ?? -ECG for baseline QT/QTc due to recent cocaine use. ?? Thank you for allowing us to participate in this patient's care. We will continue to follow the patient as needed by the primary team vs sign off. Please feel free to contact the Psychiatry consult service (call [phone] or page [phone]) with any questions or concerns.? Ale Baeza, KARENP-ARIEL, MSN Emergency Psychiatry Services Division of Consultation-Liaison Psychiatry Department of Psychiatry [facility] Histories Allergies Allergies ?(Active and Proposed Allergies Only) Vicodin? (Severity: Unknown severity, Onset: Unknown) Percocet 5/325? (Severity: Unknown severity, Onset: Unknown) ? Past Medical History/Problem List Active Problems??(1) Seizures ? Past Surgical History No surgery history documented. ? Social History Alcohol Details:??Use: Never. Substance Abuse Details:??Use: Past. Tobacco Details:??Use: Former smoker, quit more than 30 days ago. ? Psychosocial History ? Family History No family history recorded. ? Medications Home Medications BusPIRone (busPIRone 5 mg oral tablet)?5?Milligram?1?tablet?By Mouth?3 times a day Cetirizine (ZyrTEC 10 mg oral tablet)?1?tab(s)?10?Milligram?By Mouth?Daily Ibuprofen (ibuprofen 800 mg oral tablet)?800?Milligram?1?tablet?By Mouth?3 times a day?as needed?Pain , Moderate Lamotrigine (lamotrigine 100 mg oral tablet)?100?Milligram?1?tablet?By Mouth?2 times a day levETIRAcetam (levETIRAcetam 500 mg oral tablet)?1.5?tab(s)?750?Milligram?By Mouth?2 times a day Quetiapine (SEROquel 50 mg oral tablet)?1?tab(s)?50?Milligram?By Mouth?Daily at bedtime Topiramate (Topamax 25 mg oral tablet)?1?tab(s)?25?Milligram?By Mouth?2 times a day ? Inpatient Medications Medications (6) Active SCHEDULED: (4) Keppra 500mg Tablet (Keppra 500 mg oral tablet) ??750 mg, By Mouth, 2 times a day LamoTRIGINE 25 mg Tablet (LamoTRIGINE Tablet) ??25 mg, By Mouth, Daily Quetiapine 25 mg Tablet (SEROquel 25 mg oral tablet) ??50 mg, By Mouth, Daily at bedtime Topiramate 25 mg Tablet (Topiramate Tablet) ??25 mg, By Mouth, 2 times a day CONTINUOUS: (0) PRN: (2) HydrOXYzine Pamoate 25mg Capsule (hydrOXYzine pamoate 25 mg oral capsule) ??25 mg, By Mouth, Every 6 hours Quetiapine 25 mg Tablet (SEROquel 25 mg oral tablet) ??25 mg, By Mouth, 3 times a day ? Results Recent Labs BLOOD COUNT & DIFF WBC 10.6 k/mm3 ()?? 09/29/2022 15:09 RBC 4.68 m/mm3 ()?? 09/29/2022 15:09 Hgb 13.3 Gm/dL ()?? 09/29/2022 15:09 Hct 42.3 % ()?? 09/29/2022 15:09 MCV 90.4 femtoliters ()?? 09/29/2022 15:09 MCH 28.4 pg ()?? 09/29/2022 15:09 MCHC 31.4 g/dL (Low)?? 09/29/2022 15:09 Platelet Count 371 k/mm3 ()?? 09/29/2022 15:09 RDW-SD 42.8 femtoliters ()?? 09/29/2022 15:09 MPV 10.2 femtoliters ()?? 09/29/2022 15:09 Nucleated RBC (Automated) 0.0 #/100 WBC'S ()?? 09/29/2022 15:09 Abs. NRBC 0.0 k/mm3 ()?? 09/29/2022 15:09 Abs. Neut 6.3 k/mm3 ()?? 09/29/2022 15:09 Abs. Lymph 2.9 k/mm3 ()?? 09/29/2022 15:09 Abs. Colleton 0.7 k/mm3 ()?? 09/29/2022 15:09 Abs. Eo 0.5 k/mm3 (High)?? 09/29/2022 15:09 Abs. Baso 0.1 k/mm3 ()?? 09/29/2022 15:09 Neut % 59.8 % ()?? 09/29/2022 15:09 Lymph % 27.6 % ()?? 09/29/2022 15:09 Colleton % 6.9 % ()?? 09/29/2022 15:09 Eos % 4.4 % ()?? 09/29/2022 15:09 Baso % 0.8 % ()?? 09/29/2022 15:09 Imm Gran 0.5 % ()?? 09/29/2022 15:09 Abs. Imm Gran 0.1 k/mm3 ()?? 09/29/2022 15:09 ?? CHEM GENERAL Sodium 142 mmol/L ()?? 09/29/2022 14:26 Potassium 3.8 mmol/L ()?? 09/29/2022 14:26 Chloride 110 mmol/L (High)?? 09/29/2022 14:26 Bicarbonate Level 21 mmol/L (Low)?? 09/29/2022 14:26 Anion Gap 11 ()?? 09/29/2022 14:26 Glucose Level 111 mg/dL (High)?? 09/29/2022 14:26 BUN 8 mg/dL ()?? 09/29/2022 14:26 Creatinine-Blood 0.7 mg/dL ()?? 09/29/2022 14:26 Estimated GFR Creatinine 117 ML/MIN/1.73 M2 ()?? 09/29/2022 14:26 Calcium 8.9 mg/dL ()?? 09/29/2022 14:26 ?? ENDOCRINE/TUMOR MARKER TSH 1.18 uIU/mL ()?? 09/29/2022 14:26 Blood <1 mIU/mL ()?? 09/29/2022 14:26 ?? TOXICOLOGY/TDM Ethanol, Serum or Plasma NONE DETECTED mg/dL ()?? 09/29/2022 14:26 Levetiracetam Level 31.40 mg/L ()?? 09/29/2022 14:26 ?? URINE OTHER Est Creatinine Clearance 97.57 mL/min ()?? 09/29/2022 16:17 ?? VIROLOGY COVID-19 by RT-PCR NEGATIVE ()?? 09/29/2022 18:31 ? Abnormal Labs ?? BLOOD COUNT & DIFF ??Abs. Eo ??0.5 k/mm3 (High) ??09/29/2022 15:09 ??Abs. Imm Gran ??0.1 k/mm3 () ??09/29/2022 15:09 ??Abs. NRBC ??0.0 k/mm3 () ??09/29/2022 15:09 ??Imm Gran ??0.5 % () ??09/29/2022 15:09 ??MCHC ??31.4 g/dL (Low) ??09/29/2022 15:09 ??Nucleated RBC (Automated) ??0.0 #/100 WBC'S () ??09/29/2022 15:09 ??RDW-SD ??42.8 femtoliters () ??09/29/2022 15:09 ? CHEM GENERAL ??Bicarbonate Level ??21 mmol/L (Low) ??09/29/2022 14:26 ??Chloride ??110 mmol/L (High) ??09/29/2022 14:26 ??Estimated GFR Creatinine ??117 ML/MIN/1.73 M2 () ??09/29/2022 14:26 ??Glucose Level ??111 mg/dL (High) ??09/29/2022 14:26 ? ENDOCRINE/TUMOR MARKER ??Blood ??<1 mIU/mL () ??09/29/2022 14:26 ? TOXICOLOGY/TDM ??Ethanol, Serum or Plasma ??NONE DETECTED mg/dL () ??09/29/2022 14:26 ??Levetiracetam Level ??31.40 mg/L () ??09/29/2022 14:26 ? VIROLOGY ??COVID-19 by RT-PCR ??NEGATIVE () ??09/29/2022 18:31 ? Note: Critical results are displayed in red. ? Blood Glucose Trend Glucose Level:??111 mg/dL??High (09/29/22 14:26:00) ? CBC, CBC w/Diff?? CBC?? Differential?? WBC: 10.6 k/mm3 (15:09) Abs. Neut: 6.3 k/mm3 (15:09) RBC: 4.68 m/mm3 (15:09) Abs. Lymph: 2.9 k/mm3 (15:09) Hct: 42.3 % (15:09) Abs. Colleton: 0.7 k/mm3 (15:09) RDW-SD: 42.8 femtoliters (15:09) Abs. Eo:??0.5 k/mm3??High (15:09) Nucleated RBC (Automated): 0 #/100 WBC'S (15:09) Abs. Baso: 0.1 k/mm3 (15:09) Abs. NRBC: 0 k/mm3 (15:09) Neut %: 59.8 % (15:09) ?? Lymph %: 27.6 % (15:09) ?? Colleton %: 6.9 % (15:09) ?? Eos %: 4.4 % (15:09) ?? Baso %: 0.8 % (15:09) ?? Imm Gran: 0.5 % (15:09) ?? Abs. Imm Gran: 0.1 k/mm3 (15:09) ? BMP, Mg, and Phos Anion Gap: 11 (14:26) Bicarbonate Level:??21 mmol/L??Low (14:26) BUN: 8 mg/dL (14:26) Calcium: 8.9 mg/dL (14:26) Chloride:??110 mmol/L??High (14:26) Creatinine-Blood: 0.7 mg/dL (14:26) Estimated GFR Creatinine: 117 ML/MIN/1.73 M2 (14:26) Glucose Level:??111 mg/dL??High (14:26) Potassium: 3.8 mmol/L (14:26) Sodium: 142 mmol/L (14:26) ?? LFT?? No qualifying data available. ?? Urinalysis Est Creatinine Clearance: 97.57 mL/min (16:17) ? Patient Care team information Care Team Personnel Name: Barry RN, May Position: Reference Physician Member Role: PCP Address: Address: [address] [place] [id number] Name: Gaby Sampson MD Position: [facility] Resident Member Role: ED Resident Address: Address: [address] [place] [id number]- Name: Lyn Alvarado Position: [facility] ED TA [facility] Name: Marshall WILL, Wendy Position: [facility] ED RN W/OE and Tasks Member Role: Patient Care Provider Name: Nikolay Kim MD Position: [facility] ED Medicine MD Member Role: Admitting Physician Address: Address: [address] [place] [id number]- Care Team Related Persons Name: BROOKE JONES Address: home [address] [address] Name: ELEONORA ROD Address: home [address] [place] [id number] Name: JUAN COOK Address: home [address] [place] [address]
--- NOTE | 2022-10-31 13:47 | ED_ITS ---
HPI - Extremity Problem General Chief complaint: Extremity Injury, Upper Stated complaint: L thumb inj Time Seen by Provider: 10/31/22 13:13 Source: patient Mode of arrival: ambulatory Limitations: no limitations History of Present Illness HPI Narrative: Patient comes to emergency room complaining of left thumb injury. Patient states that yesterday she slammed her finger in a door. Patient denies any other injuries. Related Data Previous Rx's Medication Instructions Recorded ibuprofen 400 mg tablet 400 mg PO Q8H PRN fever or pain 10/31/22 #20 tabs Allergies Allergy/AdvReac Type Severity Reaction Status Date / Time From Percocet AdvReac Unknown NAUSEA & Uncoded 10/31/22 12:59 VOMITING From Vicodin AdvReac Unknown NAUSEA & Uncoded 10/31/22 12:59 VOMITING Review of Systems Review of Systems: Constitutional : No Weight loss, No Fever, No Chills, No Night Sweats, No Fatigue, No Malaise ENT/Mouth : No Hearing loss, No Ear Pain, No Nasal Congestion, No Sinus Pain, No Hoarseness, No sore throat, No Rhinorrhea, No Swallowing Difficulty Eyes: No Eye Pain, No Swelling, No Redness, No Foreign Body, No Discharge, No Vision Changes Cardiovascular : No Chest Pain, No SOB, No Dyspnea on Exertion, No Orthopnea, No Edema, No Palpitations Respiratory : No Cough, No Sputum, No Wheezing, No Smoke Exposure, No Dyspnea Gastrointestinal : No Nausea, No Vomiting, No Diarrhea, No Constipation, No abdominal Pain, No Hematochezia, No Melena Genitourinary : no irregular bleeding, No Dysuria, No Urinary Frequency, No Hematuria, No Urinary Incontinence, No Urgency, No Flank Pain, No Urinary Flow Changes, No Hesitancy Musculoskeletal : Complaining of some pain on the left hand distally, No Myalgias, No Joint Swelling Skin : No Skin Lesions, No rash Neuro : No Weakness, No Numbness, No Paresthesias, No Loss of Consciousness, No Dizziness, No Headache Psych : No Anxiety/Panic, No Depression, No SI/HI/AH/VH, No Social Issues, Heme/Lymph: No Bruising, No Bleeding,No Lymphadenopathy Endocrine : No Polyuria, No Polydipsia, No Temperature Intolerance PMFSH Social History Social History Advance Directives: Yes Advance Directives Information Provided: Yes Advance Directives on File: No Physical Exam Vital Signs: Vital Signs: Last Vital Signs Temp 97.5 F 10/31/22 12:59 Pulse 100 10/31/22 12:59 Resp 18 10/31/22 12:59 BP 127/84 10/31/22 12:59 Pulse Ox 99 10/31/22 12:59 O2 Del Method Room Air 10/31/22 12:59 BMI result Body Mass Index 28.3 Const: Other: Appearance: Alert. Oriented X3. No acute distress. Eyes: Pupils equal, round and reactive to light. ENT: Pharynx normal. Neck: Normal inspection. Neck supple. No lymph nodes noted. No crepitus CVS: Normal heart rate and rhythm. Pulses normal. Normal S1 and S2 Respiratory: No respiratory distress. Breath sounds normal. No Wheezing. No rales Abdomen: Soft and nontender. No rigidity. No distention. Skin: Skin warm and dry. Normal skin color. Normal skin turgor. Extremities: No lower extremity edema. No Lacerations. No Rash. Left thumb looks normal, no swelling, no erythema, no subungual hematoma, lacerations or abrasions. Patient states she is unable to flex the thumb. Due to pain Neuro: Oriented X 3. No motor deficit. No sensory deficit. Moving all extremities. No slurred speech. CN 2 through 12 grossly intact Psych: calm, cooperative, normal affect Course Course Course Narrative: -patient's thumb does not seem to have any deformity or discoloration, no subungual hematoma. X-ray pending -patient was given a dose of ibuprofen in the emergency room Medications Administered Discontinued Medications Generic Name Dose Route Start Last Admin Trade Name Boboq PRN Reason Stop Dose Admin Ibuprofen 600 mg 10/31/22 13:21 10/31/22 13:25 Ibuprofen 600 Mg Tablet PO 10/31/22 13:22 600 mg ONCE ONE Administration Medical Decision Making Medical Decision Making [facility] Narrative: -patient received 1 dose of ibuprofen -my interpretation of x-ray of the hand: Questionable fracture of the thumb at the base -I discussed the x-ray with our radiologist on-call, seems to be that there is a subtle fracture. Spica was applied to the thumb Differential Diagnosis Differential Diagnoses: The differential diagnosis associated with the presentation includes (Thumb contusion, fracture, dislocation) Independent Interpretation I performed an independent interpretation of an: Plain X-Ray Radiology Impression Discussion of test interpretation with radiology: I have reviewed the radiologist's reading. Radiologist Impression: FINDINGS: There is a subtle lucency in cortex near the base of the distal phalanx of the thumb. Correlate for any pain in this specific area. Otherwise, the bones and soft tissues are unremarkable. Alignment is anatomic. Joint spaces are maintained. No erosions or soft tissue calcifications. XR/XR hand LT min 3V IMPRESSION: A subtle nondisplaced, incomplete fracture of the proximal metaphysis of the distal phalanx of the thumb is suspected. Discharge Plan Discharge Clinical Impression: Fracture of thumb Patient Disposition: Home, Self-Care Instructions: Thumb Fracture (ED) Additional Instructions: Please follow-up with your primary care physician tomorrow. If you have any worsening or new symptoms, please return to the emergency room or call 911 Prescriptions: New ibuprofen 400 mg tablet 400 mg PO Q8H PRN (Reason: fever or pain) Qty: 20 0RF Referrals: Janna Vargas MD [Physician] - 11/01/22
== END 2022-10-31 15:48 | disposition home or self-care (01) ==
PROVIDERS: Emergency Provider Emergency Medicine
DX: S62.502A Fracture of unspecified phalanx of left thumb, initial encounter for closed fracture (principal); M79.642 Pain in left hand; Y29.XXXA Contact with blunt object, undetermined intent, initial encounter; Y93.9 Activity, unspecified; Y92.9 Unspecified place or not applicable; Y99.9 Unspecified external cause status
CPT/HCPCS: 29130; 73130; 99283

== ENCOUNTER 2022-10-31 23:40 | Emergency (ER) | payer OTHER, SELFPAY ==
[2022-10-31 23:48] VITALS: BP 123/86; PULSE 104; RESP 18; O2SAT 99; BMI 28.8
--- OUTSIDE RECORDS SUMMARY | 2022-11-01 06:12 | XMS_ITS | Continuity of Care Document ---
Author Name Unknown Organization [facility] Address Unknown Care Team Providers Care Accounting Administrator Name Role Phone Not on Staff, PCP Primary Care Physician Unavail able Encounter [facility] Date(s): 06/22/21 - 07/22/21 [facility]
== END 2022-11-01 06:17 | disposition left against medical advice (07) ==
PROVIDERS: Emergency Provider Emergency Medicine
DX: M79.645 Pain in left finger(s) (principal); S62.502D Fracture of unspecified phalanx of left thumb, subsequent encounter for fracture with routine healing; X58.XXXD Exposure to other specified factors, subsequent encounter
CPT/HCPCS: 99281

== ENCOUNTER 2022-11-07 08:33 | Outpatient (REF) | payer OTHER, SELFPAY ==
--- NOTE | ~2022-11-07 | XR_ITS ---
EXAMINATION: XR HAND, LEFT CLINICAL INFORMATION: Left hand pain. COMPARISON: None available. TECHNIQUE: PA, lateral, and oblique views of the left hand. FINDINGS: Redemonstrated is a subtle linear lucency in the cortex near the base of the distal phalanx of the thumb. This appears similar as compared to previous. No callus formation or periosteal changes are seen. The remainder of the bones appear intact. Joint spaces are maintained. Bony alignment is anatomic. Normal bone mineralization. No erosions or soft tissue calcification. XR/XR hand LT min 3V IMPRESSION: Possible subtle nondisplaced incomplete fracture of the proximal metaphysis of the first digit distal phalanx, similar in appearance as compared to the prior x-ray 10/31/2022. Clinically correlate.
== END 2022-11-07 08:34 | disposition home or self-care (01) ==
LOC: HO.HOSX 08:33
PROVIDERS: Visit Provider Orthopaedic Surgery
DX: S62.522A Displaced fracture of distal phalanx of left thumb, initial encounter for closed fracture (principal)
CPT/HCPCS: 26750; 73130

== ENCOUNTER 2022-11-07 12:08 | Outpatient (AMB) | payer OTHER, SELFPAY ==
--- NOTE | 2022-11-07 12:20 | MHC.OFFVIS ---
Intake Vital Signs 11/07/22 12:25 Height 5 ft 4 in Weight 163 lb BMI 28.0 Intake Visit Reasons: FC - left thumb fx, DOI 10/30/22 Intake Note: Danae is 37 year old left hand dominant female who presents today for a fracture care appointment after jamming her finger on a door on 10/30/22. Patient reports that she is having in the thumb all the time, with numbness and tingling. She is wearing a thumb spica brace at all times, including while she sleeps and for hygiene purposes. Allergies From Percocet Adverse Reaction (Unknown, Uncoded 11/07/22 12:21) NAUSEA & VOMITING From Vicodin Adverse Reaction (Unknown, Uncoded 11/07/22 12:21) NAUSEA & VOMITING HPI FC - left thumb fx, DOI 10/30/22 HPI Details 37-year-old left hand dominant woman who presents today to the office for an evaluation of left thumb fracture on 10/30/22. She was reaching for a door knob when someone open the door in jammed her thumb. The patient was seen in the [facility] ER on 10/31/22 for left thumb injury. She states that she slammed her finger in the door on 10/30/22. She describes her pain as constant, throbbing, radiating pain. She says the pain radiates up the radial aspect of her hand to her radial forearm. She reports constant numbness and paresthesia in her thumb. She is wearing a thumb spica brace all the time, including while she sleeps and for hygiene purposes. [facility] Social History (Updated 11/07/22 @ 12:25 by Noelle Abarca [facility]) Patient Tobacco Use Status: Never used Tobacco Current occupational status: unemployed Review of Systems Const All systems reviewed & are unremarkable except as noted in HPI and below Physical Exam Vital Signs: BMI result Body Mass Index 28.0 Const General: cooperative, healthy appearing and no acute distress Orientation/consciousness: patient oriented x3 HEENT Head: Yes normocephalic and Yes atraumatic Eyes EOM: EOMs intact bilaterally Resp Effort & Inspection: normal respiratory effort and able to speak in complete sentences Cardio Jugular venous distension: no JVD Skin General skin exam: turgor normal, ecchymosis (No) and erythema (No) Rashes: no rashes Trauma: no lacerations or abrasions Neuro Other: Vascular: Cap refill brisk General: patient oriented x3 Extrem Other: Evaluation of left Upper Extremity: Neuro: He does have dense numbness to the tip of the thumb in both the ulnar digital nerve and radial digital nerve distributions. Vascular: Cap refill brisk. She does have some mild swelling and ecchymosis that is resolving in the thumb. She is most tender to palpation about the distal phalanx of the thumb. There is no angular or rotational malalignment. She is mildly tender at the MCP joint, and the radial and ulnar collateral ligaments are stable. She also has mild tenderness to palpation at the basal joint of the thumb. She can actively extend the thumb including at the IP joint. Regarding IP flexion she was able to weakly demonstrate IP joint flexion in clinic today. No tenderness in the distal radius DRUJ or distal ulna. No snuffbox or scaphoid tubercle tenderness. She does say the pain radiates up her radial forearm. Not particularly tender over the 1st dorsal compartment. No lacerations or evidence of open injury. Good cap refill. Radiographs: Three views of her left hand taken today were reviewed by me in clinic today. It shows a nondisplaced fracture through the body of the left thumb distal phalanx. It does appear that it may have an intra-articular extension on the radial aspect of the bone, but there is no displacement or step-off. Psych Appearance: grossly normal Affect: normal affect Attitude: cooperative Office Procedures Fracture Care Details: Fracture care [id number] Fracture Billing Code: Fracture Billing Code Assessment & Plan Assessment & Plan (1) Fracture of distal phalanx of left thumb: Code(s): S62.522A - Displaced fracture of distal phalanx of left thumb, initial encounter for closed fracture Plan Assessment and plan: 1. Left thumb distal phalanx fracture, nondisplaced involving the body and possible extension to the articular surface. Date of injury 10/30/2022, jammed her thumb into a door I educated her about this injury Were going to manage this was splinting and gentle range of motion and activity modification. No grasping or gripping. We fitted her with a thumb splint that will allow for MCP and CMC joint motion. She will work on gentle range of motion at home. Follow-up in about 3-4 weeks. Radiographs are only necessary if she is continuing to have pain. That time was 1 assessed her range of motion and healing. She is happy with the current plan Scribed for Dr. Janna Vargas by Eric Alexander, front office medical assistant, on 11/07/2022. I, Dr. Janna Vargas, have personally reviewed and agree with the information entered by the scribe. Orders: Orders XR hand LT min 3V Today M79.642 - Pain in left hand Coding Level of Care Code New Pt Level 3 (45663) Diagnoses Fracture of distal phalanx of left thumb S62.522A CPT Codes Fracture Care - Fracture Billing Code: Fracture Billing Code ([id number])
[2022-11-07 12:25] VITALS: BMI 28.0
== END 2022-11-07 13:18 | disposition home or self-care (01) ==
PROVIDERS: Visit Provider Orthopaedic Surgery
DX: S62.522A Displaced fracture of distal phalanx of left thumb, initial encounter for closed fracture (principal)
CPT/HCPCS: 26750; 99203

== ENCOUNTER 2022-11-28 12:18 | Outpatient (AMB) | payer OTHER, SELFPAY ==
--- NOTE | 2022-11-28 12:24 | A.OFFVIS_ITS ---
Intake Vital Signs 11/28/22 12:29 Height 5 ft 4 in Weight 163 lb BMI 28.0 Intake Visit Reasons: OV-left thumb fx, DOI 10/30/22-Follow up Intake Note: Danae a 37 year old right hand dominant female who presents today for a follow up of left thumb fracture, DOI 10/30/22. Patient reports having a throbbing sensation and continues to have numbness at the tip of her thumb. Limited ROM, stating unable to fully bend thumb to make a fist. States yesterday she had pain due to accidentally applying pressure to thumb. Allergies From Percocet Adverse Reaction (Unknown, Uncoded 11/28/22 12:29) NAUSEA & VOMITING From Vicodin Adverse Reaction (Unknown, Uncoded 11/28/22 12:29) NAUSEA & VOMITING HPI OV-left thumb fx, DOI 10/30/22-Follow up HPI Details 37-year-old right hand dominant female cam tesfaye presents in the office today for a follow up of a left thumb distal phalanx fracture, which occurred on 10/30/2022 status post closing a door on her hand. The patient reports a throbbing sensation with continued numbness at the tip of the thumb. She claims to have limited ROM stating she is unable to fully bend the thumb to make a closed fist. She states yesterday she has an increase in pain due to accidentally applying pressure to the left thumb. [facility] Social History (Updated 11/28/22 @ 12:27 by JACOB Reyes) Patient Tobacco Use Status: Never used Tobacco Current occupational status: unemployed Current occupation: right hand dominant Review of Systems Const All systems reviewed & are unremarkable except as noted in HPI and below Physical Exam Vital Signs: BMI result Body Mass Index 28.0 Const General: cooperative, healthy appearing and no acute distress Resp Effort & Inspection: normal respiratory effort and able to speak in complete sentences Cardio Rate: regular rate Peripheral pulses: Peripheral pulses 2+ throughout GI Palpation (GI): Soft to palpation Skin Lesions: no lesions Rashes: no rashes Extrem Other: Numbness along the ulnar digital nerve distribution. Normal sensation reported radial digital nerve distribution. Cap refill brisk. Tenderness to palpation about the distal phalanx of the thumb. There is no angular or rotational malalignment. She can actively extend the thumb including at the IP joint. No tenderness in the distal radius DRUJ or distal ulna. No snuffbox or scaphoid tubercle tenderness. She does say the pain radiates up her radial forearm. Not particularly tender over the 1st dorsal compartment. No lacerations or evidence of open injury. Good cap refill. Radiographs: Three views of her left hand taken today were reviewed by me in clinic today. It shows a nondisplaced fracture through the body of the left thumb distal phalanx. It does appear that it may have an intra-articular extension on the radial aspect of the bone, but there is no displacement or step-off. Assessment & Plan Assessment & Plan (1) Fracture of distal phalanx of left thumb: Code(s): S62.522A - Displaced fracture of distal phalanx of left thumb, initial encounter for closed fracture Qualifiers: Encounter type: subsequent encounter Fracture alignment: nondisplaced Fracture healing: with routine healing Fracture type: closed Qualified Code(s): S62.525D - Nondisplaced fracture of distal phalanx of left thumb, subsequent encounter for fracture with routine healing Plan Ms. Shola French is a 37-year-old right hand dominant female who presents in the office today for a follow up of a left thumb distal phalanx fracture, which occurred on 10/30/2022 status post closing a door on her hand. The patient reports a throbbing sensation with continued numbness at the tip of the thumb. She claims to have limited ROM stating she is unable to fully bend the thumb to make a closed fist. She states yesterday she has an increase in pain due to accidentally applying pressure to the left thumb. The patient will be referred to occupational therapy to work on gentle ROM. She will discontinue the use of the brace at this time. She can continue to work on gentle ROM that she was educated on by Dr. Vargas. Follow up will be in 4 weeks, or sooner if needed. X-rays of the left thumb obtained while in the office today and reviewed by me, Ariana Davis PA-C, revealed routine healing of a left distal phalanx fracture. Orders: Orders XR hand LT min 3V Today M79.643 - Pain in unspecified hand Patient Instructions: Scribed for Ariana Davis PA-C by Mary Morgan medical care administrator, on 11/28/2022 at 12:29 pm, EST. Coding Level of Care Code Est Pt Level 3 (50925) Diagnoses Closed nondisplaced fracture of distal phalanx of left thumb with routine healing, subsequent encounter S62.525D Encounter type: subsequent encounter Fracture alignment: nondisplaced Fracture healing: with routine healing Fracture type: closed
[2022-11-28 12:29] VITALS: BMI 28.0
== END 2022-11-28 13:09 | disposition home or self-care (01) ==
PROVIDERS: Visit Provider Physician Assistant
DX: S62.525D Nondisplaced fracture of distal phalanx of left thumb, subsequent encounter for fracture with routine healing (principal)
CPT/HCPCS: 26750

== ENCOUNTER 2022-11-28 12:18 | Outpatient (REF) | payer OTHER, SELFPAY | END 2022-11-28 12:19 | disposition home or self-care (01) | LOC: HO.HOSX 12:18 | PROVIDERS: Visit Provider Orthopaedic Surgery | DX: S62.525D Nondisplaced fracture of distal phalanx of left thumb, subsequent encounter for fracture with routine healing (principal) | CPT/HCPCS: 26750; 73130 ==

== ENCOUNTER 2022-12-28 10:47 | Outpatient (REF) | payer OTHER, SELFPAY | END 2022-12-28 10:48 | disposition home or self-care (01) | LOC: HO.HOSX 10:47 | PROVIDERS: Visit Provider Physician Assistant | DX: Z13.89 Encounter for screening for other disorder (principal) ==

== ENCOUNTER 2023-03-25 22:54 | Emergency (ER) | payer OTHER, SELFPAY ==
[2023-03-25 23:58] VITALS: BP 122/75; PULSE 84; RESP 16; TEMP 36.6; O2SAT 95; BMI 30.9
--- NOTE | 2023-03-26 00:21 | ED.GENADULT ---
HPI - General Adult General Chief complaint: Wound/Laceration Stated complaint: rt arm cut Time Seen by Provider: 03/25/23 23:37 Source: patient, RN notes reviewed and old records reviewed Mode of arrival: ambulatory Limitations: no limitations History of Present Illness HPI narrative: 37-year-old female presents for evaluation laceration to her right arm. 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 She states that her hand slipped and she accidentally caught her right arm She controlled bleeding with a teacher She is unsure when her last tetanus was but does not believe it was in the last 10 years She reports minimal pain Related Data Home Medications Medication Instructions Recorded Confirmed buspirone 5 mg tablet 5 mg PO TID 11/07/22 cetirizine 10 mg tablet 10 mg PO DAILY 11/07/22 lamotrigine 100 mg tablet 100 mg PO BID 11/07/22 levetiracetam 500 mg tablet mg PO 11/07/22 risperidone 0.5 mg tablet 0.5 mg PO BID 11/07/22 topiramate 25 mg tablet 25 mg PO BID 11/07/22 Previous Rx's Medication Instructions Recorded ibuprofen 400 mg tablet 400 mg PO Q8H PRN fever or pain 10/31/22 #20 tabs Allergies Allergy/AdvReac Type Severity Reaction Status Date / Time From Percocet AdvReac Unknown NAUSEA & Uncoded 11/28/22 12:29 VOMITING From Vicodin AdvReac Unknown NAUSEA & Uncoded 11/28/22 12:29 VOMITING Review of Systems Constitutional: Constitutional: Denies chills and Denies fever(s) Eyes: Eyes: Denies blurry vision Cardiovascular: Cardiovascular: Denies chest pain Musculoskeletal: Musculoskeletal: Denies limited range of motion Integumentary/Breasts: Skin/Breast: Reports wounds PMFSH Social History Social History (Updated 11/28/22 @ 12:27 by JACOB Reyes) Patient Tobacco Use Status: Never used Tobacco Advance Directives: No Advance Directives Information Provided: No Current occupational status: unemployed Current occupation: right hand dominant Physical Exam ED Vital Signs: Vital Signs - 24 hr 03/25/23 23:58 Temperature 97.9 F Pulse Rate 84 Respiratory Rate 16 Blood Pressure 122/75 Pulse Oximetry 95 Oxygen Delivery Method Room Air BMI result Body Mass Index 30.9 Const General: healthy appearing, comfortable, no acute distress, alert and awake Nutritional Appearance: well nourished Orientation/consciousness: patient oriented x3 HENMT Head: Yes normocephalic and Yes atraumatic Skin Other: Patient has a large, 8 cm linear laceration to the ulnar side of the right forearm. The laceration goes through the entire skin layer but not through the subcutaneous fatty tissue. There are no muscles, vessels or tendons visible. Neuro General: patient oriented x3 Cranial nerves: Yes Bilaterally intact EOM present Cognition (Neuro): normal cognition Extrem Other: Moving all extremities well without any obvious deformities. Patient has full range of motion with flexion-extension of the wrist and all 5 digits of the right hand Medications Administered Discontinued Medications Generic Name Dose Route Start Last Admin Trade Name Freq PRN Reason Stop Dose Admin Diphtheria/Tetanus/Acell Pertussis 0.5 ml 03/25/23 23:45 03/26/23 00:32 Diphth,Pertus(Acell),Tet Adult 0.5 Ml Syringe IM 03/25/23 23:46 0.5 ml .ONCE ONE Administration Procedures Laceration Laceration 1: Site: upper extremity Side (If applicable): right Size (cm): 8 Description: linear Depth: simple, single layer Local Anesthetic: lidocaine 1% Amount of anesthesia used (mL): 5 Pre-repair: wound explored, irrigated extensively and deep structures intact Skin layer closed with: nylon Size (cm): 4-0 Number of sutures: 10 Technique: simple, interrupted Medical Decision Making Medical Decision Making MDM Narrative: Patient had a simple laceration. See procedure note. Tetanus was updated. Differential Diagnosis Differential Diagnoses: The differential diagnosis associated with the presentation includes Laceration Skin tear Puncture wound Abrasion Discharge Plan Discharge Clinical Impression: Laceration Patient Disposition: Home, Self-Care Instructions: Laceration (ED) Additional Instructions: You had 10 sutures placed today These can be removed in 7-10 days Keep the area clean and dry Follow-up with your primary doctor or return here to have them removed Return for new or worsening symptoms Your tetanus was updated today Prescriptions: No Action ibuprofen 400 mg tablet 400 mg PO Q8H PRN (Reason: fever or pain) Qty: 20 0RF risperidone 0.5 mg tablet 0.5 mg PO BID lamotrigine 100 mg tablet 100 mg PO BID levetiracetam 500 mg tablet PO topiramate 25 mg tablet 25 mg PO BID buspirone 5 mg tablet 5 mg PO TID cetirizine 10 mg tablet 10 mg PO DAILY Interventions: ED Discharge Assessment Last Done: 03/26/23 00:35 Discharge Date/Time: 03/26/23 00:37
[2023-03-26] MEDS: Diphth,Pertus(ACell),Tet Adult 0.5 ML SYRINGE IM (00:32)
== END 2023-03-26 00:37 | disposition home or self-care (01) ==
PROVIDERS: Emergency Provider Internal Medicine
DX: S41.111A Laceration without foreign body of right upper arm, initial encounter (principal); W26.8XXA Contact with other sharp object(s), not elsewhere classified, initial encounter; Y93.89 Activity, other specified; Y92.89 Other specified places as the place of occurrence of the external cause; Y99.9 Unspecified external cause status; Z23 Encounter for immunization
CPT/HCPCS: 12004; 90471; 90715; 99282; 99284

== ENCOUNTER 2023-03-29 17:40 | Emergency (ER) | payer OTHER, SELFPAY ==
[2023-03-29 17:53] VITALS: BP 138/88; PULSE 100; RESP 16; TEMP 36.9; O2SAT 98; BMI 30.9
--- NOTE | 2023-03-29 17:58 | ED_ITS ---
HPI - General Adult General Chief complaint: Wound/Laceration Stated complaint: stitches on Sunday, infection? Time Seen by Provider: 03/29/23 17:58 Source: patient, RN notes reviewed and old records reviewed Mode of arrival: ambulatory Limitations: no limitations History of Present Illness HPI narrative: 37-year-old female presents for evaluation of ?I think I have an infection by my stitches. ? Patient was seen here 4 days ago on Sunday for a laceration to her right arm She had 10 sutures placed by myself She says that 2 days ago she noticed redness, some swelling around the area. She reports there was some minor discharge from one of the sutures Denies any fevers or chills. 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 ? Related Data Home Medications Medication Instructions Recorded Confirmed buspirone 5 mg tablet 5 mg PO TID 11/07/22 cetirizine 10 mg tablet 10 mg PO DAILY 11/07/22 lamotrigine 100 mg tablet 100 mg PO BID 11/07/22 levetiracetam 500 mg tablet mg PO 11/07/22 risperidone 0.5 mg tablet 0.5 mg PO BID 11/07/22 topiramate 25 mg tablet 25 mg PO BID 11/07/22 Previous Rx's Medication Instructions Recorded ibuprofen 400 mg tablet 400 mg PO Q8H PRN fever or pain 10/31/22 #20 tabs cephalexin 500 mg capsule 500 mg PO QID #28 caps 03/29/23 doxycycline hyclate 100 mg tablet 100 mg PO BID #14 tabs 03/29/23 Allergies Allergy/AdvReac Type Severity Reaction Status Date / Time From Percocet AdvReac Unknown NAUSEA & Uncoded 11/28/22 12:29 VOMITING From Vicodin AdvReac Unknown NAUSEA & Uncoded 11/28/22 12:29 VOMITING Review of Systems 2 Constitutional: Constitutional: Denies chills and Denies fever(s) Integumentary/Breasts: Skin/Breast: Reports erythema and Reports wounds PMFSH Social History Social History (Updated 11/28/22 @ 12:27 by JACOB Reyes) Patient Tobacco Use Status: Never used Tobacco Advance Directives: No Advance Directives Information Provided: No Current occupational status: unemployed Current occupation: right hand dominant Physical Exam ED Vital Signs: Vital Signs - 24 hr 03/29/23 17:53 Temperature 98.4 F Pulse Rate 100 Respiratory Rate 16 Blood Pressure 138/88 Pulse Oximetry 98 Oxygen Delivery Method Room Air BMI result Body Mass Index 30.9 Const General: healthy appearing, comfortable, no acute distress, alert and awake Nutritional Appearance: well nourished Orientation/consciousness: patient oriented x3 HENMT Head: Yes normocephalic and Yes atraumatic Eyes Eyelids: Yes eyelids normal Conjunctivae: conjunctivae normal Sclerae: sclerae normal Corneas: corneas normal Pupils: Equal, round and reactive pupils present EOM: EOMs intact bilaterally Neck Neck: Yes full ROM Resp Effort & Inspection: normal respiratory effort, able to speak in complete sentences and not labored Skin Other: Patient has a healing laceration to the ventral surface of the right forearm. There is mild erythema extending proximally. No obvious drainage, abscess formation, fluctuance or induration. General skin exam: elasticity normal Neuro General: patient oriented x3 Cranial nerves: Yes Equal, round and reactive pupils present and Yes Bilaterally intact EOM present Cognition (Neuro): normal cognition Medical Decision Making Medical Decision Making MDM Narrative: Patient appears to have a mild cellulitis around the sutures. The area was trace. Her vitals are stable, no evidence of fevers or sepsis. No evidence of abscess formation. Will treat with cephalexin and doxycycline. Patient was encouraged to keep the area covered while she is at work and she was provided with supplies to do so Differential Diagnosis Differential Diagnoses: The differential diagnosis associated with the presentation includes Cellulitis Abscess Laceration Acute wound dermatitis Discharge Plan Discharge Clinical Impression: Cellulitis of arm, right, Laceration Patient Disposition: Home, Self-Care Instructions: Cellulitis (ED) Additional Instructions: You appear to have a mild infection around your sutures Take both antibiotics as directed Apply warm compresses every few hours Return for new or worsening symptoms, especially develop a fever Follow-up with your primary doctor Prescriptions: New cephalexin 500 mg capsule 500 mg PO QID Qty: 28 0RF doxycycline hyclate 100 mg tablet 100 mg PO BID Qty: 14 0RF No Action ibuprofen 400 mg tablet 400 mg PO Q8H PRN (Reason: fever or pain) Qty: 20 0RF risperidone 0.5 mg tablet 0.5 mg PO BID lamotrigine 100 mg tablet 100 mg PO BID levetiracetam 500 mg tablet PO topiramate 25 mg tablet 25 mg PO BID buspirone 5 mg tablet 5 mg PO TID cetirizine 10 mg tablet 10 mg PO DAILY Interventions: ED Discharge Assessment Last Done: 03/29/23 18:03 Discharge Date/Time: 03/29/23 18:03
== END 2023-03-29 18:03 | disposition home or self-care (01) ==
PROVIDERS: Emergency Provider Emergency Medicine Emergency Medical Services
DX: L03.113 Cellulitis of right upper limb (principal); S51.811D Laceration without foreign body of right forearm, subsequent encounter; W45.8XXD Other foreign body or object entering through skin, subsequent encounter
CPT/HCPCS: 99282; 99283

== ENCOUNTER 2024-08-02 19:50 | Emergency (ER) | payer OTHER, SELFPAY ==
--- NOTE | 2024-08-02 | ECG_ITS ---
Test Reason : SEIZURE Blood Pressure : */* mmHG Vent. Rate : 103 BPM Atrial Rate : 103 BPM P-R Int : 140 ms QRS Dur : 76 ms QT Int : 372 ms P-R-T Axes : 32 6 33 degrees QTcB Int : 487 ms Sinus tachycardia Otherwise normal ECG When compared with ECG of 03-Mar-2011 11:01, QT has lengthened Referred By: Generic ED Physician Electronically Signed By: ELLIE NIETO
--- NOTE | ~2024-08-02 | XR_ITS ---
CLINICAL HISTORY: s p fall 3 view left ankle Comparison: None Findings: No acute fractures or dislocations. Plantar calcaneal spur. No ankle effusion. No radiopaque foreign body. IMPRESSION: 1. No acute findings. This document has been electronically signed by: Vinayak Arthur MD on 08/02/2024 21:32:33
[2024-08-02 19:54] VITALS: BP 133/72; BP 136/84; PULSE 105; PULSE 115; RESP 16; TEMP 37.5; O2SAT 95; O2SAT 99; BMI 25.4
--- NOTE | 2024-08-02 20:16 | PC.NURSE ---
biba from home s/p possible unwitnessed seizure x unknown amount of time. called brother s/p event. compliant w/ rx keppra. denies injury/trauma during syncopal episode. recent breakthrough seizures at [facility] - recent EEG done at [facility] - results still pending. pt c/o right sided headache/paresthesia s/p event. +mechanical fall this am - denies feeling dizzy/lightheaded prior to fall. left ankle pain s/p fall - noteable swelling. pt also c/o feeling generally unwell w/ sore throat x a few days. sick contacts at home. a&ox4 upon ED arrival. answering questions/following commands appropriately. vss and up to date aside from being sinus tach on the monitor. ekg obtained by tech. 22gIV placed in the left hand - labs obtained/sent to lab. seizure pads in place for safety precautions. pt waiting for XR of L ankle to be completed. brother bedside for support. plan of care ongoing. call adam placed within reach.
[2024-08-02 20:19] LABS: MANUAL DIFF FLAG NO
[2024-08-02 20:25] LABS: Basophils Absolute Auto 0.1 X10*3/uL (0.0-0.2); Basophils Percent Auto 0.4 % (0-2); Eosinophils Absolute Auto 0.3 X10*3/uL (0.0-0.4); Hematocrit 38.3 % (37.0-47.0); Hemoglobin 13.4 g/dl (12.0-16.0); Imm Gran Abs Auto 0.05 X10*3/uL (0.00-0.03); Imm Gran Pct Auto 0.4 % (0.0-0.4); Lymphocytes Percent Auto 7.3 % (20-40); Mean Corpuscular Hemoglobin 30.2 pg (27.0-33.0); Mean Corpuscular Volume 86.5 fL (80.0-98.0); Mean Platelet Volume 9.9 fL (9.4-12.3); Monocytes Absolute Auto 1.1 X10*3/uL (0.1-1.2); Monocytes Percent Auto 8.5 % (2-11); Neutrophils Absolute Auto 10.9 x10*3/uL (2.0-8.3); Neutrophils Percent Auto 81.4 % (45-73); Platelet Count 324 X10*3/uL (160-400); Red Blood Count 4.43 X10*6/uL (4.20-5.50); Red Cell Distribution Width 13.4 % (11.0-16.0); White Blood Count 13.4 X10*3/uL (4.8-10.8)
[2024-08-02 20:38] LABS: Alanine Aminotransferase 36 U/L (0-31); Albumin Level 4.5 g/dL (3.5-5.0); Alkaline Phosphatase 110 U/L (39-117); Anion Gap 17 (12-20); Aspartate Amino Transferase 68 U/L (5-31); Bilirubin Total 0.3 mg/dL (0.0-1.0); Blood Urea Nitrogen 9 mg/dL (9-16); Calcium 8.5 mg/dL (8.4-10.2); Carbon Dioxide 21 mmol/L (22-29); Chloride 105 mmol/L (96-108); Creatinine Clr Calc Pharmacy 137.7; Estimated Glomerular Filt Rate > 60; Glucose Random 97 mg/dL (60-115); Magnesium 2.3 mg/dL (1.6-2.6); Potassium 4.7 mmol/L (3.3-5.1); Sodium 138 mmol/L (135-145); Total Protein 8.3 g/dL (6.5-8.0)
[2024-08-02 20:51] LABS: Lactic Acid 3.1 mmol/L (0.5-2.0)
[2024-08-02 21:01] LABS: Influenza A PCR NEGATIVE (Negative); Influenza B PCR NEGATIVE (Negative); Resp Syncy Virus RNA Qual PCR NEGATIVE (Negative); SARS COV2 PCR INHOUSE POSITIVE (Negative)
--- NOTE | 2024-08-02 21:04 | ED.GENADULT ---
HPI - General Adult General Chief complaint: Seizure Stated complaint: UNWITT SEIZURE PER EMS Time Seen by Provider: 08/02/24 21:04 Source: patient Limitations: no limitations History of Present Illness ED Provider: Darcy Kellogg PA-C HPI narrative: 38-year-old female with a history of seizure disorder, presents after seizure. Patient states she has been adherent with her antiepileptic medication, she states she takes Keppra. Today there was an unwitnessed seizure of unclear duration of time, the patient called her brother following the activity. Patient states she has had sore throat and subjective fevers for 2-3 days following her seizure activity today. Patient also states that prior to the seizure, she had a mechanical fall in the morning, denies head strike, she does complain of left ankle pain. Related Data Home Medications ?Medication ?Instructions ?Recorded ?Confirmed buspirone 5 mg tablet 5 mg PO TID 11/07/22 cetirizine 10 mg tablet 10 mg PO DAILY 11/07/22 lamotrigine 100 mg tablet 100 mg PO BID 11/07/22 levetiracetam 500 mg tablet mg PO 11/07/22 risperidone 0.5 mg tablet 0.5 mg PO BID 11/07/22 topiramate 25 mg tablet 25 mg PO BID 11/07/22 Previous Rx's ?Medication ?Instructions ?Recorded ibuprofen 400 mg tablet 400 mg PO Q8H PRN fever or pain 10/31/22 #20 tabs cephalexin 500 mg capsule 500 mg PO QID #28 caps 03/29/23 doxycycline hyclate 100 mg tablet 100 mg PO BID #14 tabs 03/29/23 Allergies Allergy/AdvReac Type Severity Reaction Status Date / Time From Percocet AdvReac Unknown NAUSEA & Uncoded 08/02/24 19:56 VOMITING From Vicodin AdvReac Unknown NAUSEA & Uncoded 08/02/24 19:56 VOMITING [facility] Social History Social History (Updated 11/28/22 @ 12:27 by JACOB Reyes) Alcohol intake: current Alcohol intake frequency: a few times a week Patient Tobacco Use Status: Never used Tobacco Smoked in Last 30 Days: Yes Use of substances other than those prescribed or required for medical reasons: No Advance Directives: No Advance Directives Information Provided: No Do you have a plan to hurt others: No Plan Patient : No Current occupational status: unemployed Current occupation: right hand dominant Physical Exam ED Vital Signs: Vital Signs - 24 hr 08/02/24 19:54 08/02/24 21:08 08/02/24 23:14 Temperature 99.5 F 98.6 F 99.6 F Pulse Rate 105 H 109 H 107 H Respiratory Rate 16 18 18 Blood Pressure 136/84 113/52 L 124/75 Pulse Oximetry 95 94 97 Oxygen Delivery Method Room Air Room Air Room Air 08/03/24 01:31 08/03/24 03:25 08/03/24 03:38 Temperature 99.2 F 98.3 F 98.3 F Pulse Rate 112 H 104 H 104 H Respiratory Rate 20 20 20 Blood Pressure 106/58 L 100/53 L 100/53 L Pulse Oximetry 98 98 98 Oxygen Delivery Method Room Air Room Air Room Air BMI result Body Mass Index 25.4 Medications Administered Discontinued Medications Generic Name Dose Route Start Last Admin Trade Name Freq PRN Reason Stop Dose Admin Acetaminophen 975 mg 08/02/24 23:18 08/02/24 23:20 Acetaminophen 325 Mg Tablet PO 08/02/24 23:19 975 mg ONCE ONE Administration Sodium Chloride 1,000 mls @ 999 mls/hr 08/02/24 21:15 08/02/24 23:08 Ns IV 08/02/24 22:15 Infused .Q1H1M JENNY Infusion Levetiracetam 750 mg/ Sodium 107.5 mls @ 430 mls/hr 08/02/24 21:19 08/02/24 22:21 Chloride IV 08/02/24 21:33 Infused ONCE ONE Infusion Lamotrigine 100 mg 08/02/24 21:19 08/02/24 22:07 Lamotrigine 100 Mg Tablet PO 08/02/24 21:20 100 mg ONCE ONE Administration Medical Decision Making Medical Decision Making MDM Narrative: 38-year-old female with a history of seizure disorder, presents after seizure. Patient states she has been adherent with her antiepileptic medication, she states she takes Keppra. Today there was an unwitnessed seizure of unclear duration of time, the patient called her brother following the activity. Patient states she has had sore throat and subjective fevers for 2-3 days following her seizure activity today. Patient also states that prior to the seizure, she had a mechanical fall in the morning, denies head strike, she does complain of left ankle pain. Problem: Seizure disorder History: Per patient I have considered the following differential diagnoses: Not adherence with medication, breakthrough seizure, illness, stress, fracture, dislocation Plan: Screening labs, including a viral panel was ordered from triage, the patient is COVID positive. This is likely the precipitating factor for her seizure activity. Keppra level was also obtained, that we will not result tonight. Someone had ordered a lactic, it is elevated, it is likely secondary to the seizure activity. We will give IV fluid and repeat. This is not sepsis this is from her seizure activity. X-ray also ordered of the ankle, there was no fracture she has a sprain. I have independently reviewed the following tests: Labs: Leukocytosis with left shift, not anemic, no electrolyte abnormality noted, lactic acid 3.1, repeat lactic acid 3.4, 3rd lactic acid 2.2, COVID positive, Keppra level pending of the time of discharge Left ankle x-ray:Findings: No acute fractures or dislocations. Plantar calcaneal spur. No ankle effusion. No radiopaque foreign body. IMPRESSION: 1. No acute findings. Lab Data 08/02/24 20:13 08/02/24 20:13 Labs: Lab Results 08/02/24 08/02/24 08/03/24 Range/Units 20:13 23:14 01:38 WBC 13.4 H (4.8-10.8) X10*3/uL RBC 4.43 (4.20-5.50) X10*6/uL Hgb 13.4 (12.0-16.0) g/dl Hct 38.3 (37.0-47.0) % MCV 86.5 (80.0-98.0) fL MCH 30.2 (27.0-33.0) pg MCHC 35.0 (31.0-35.0) g/dl RDW 13.4 (11.0-16.0) % Plt Count 324 (160-400) X10*3/uL MPV 9.9 (9.4-12.3) fL Immature Gran % (Auto) 0.4 (0.0-0.4) % Neut % (Auto) 81.4 H (45-73) % Lymph % (Auto) 7.3 L (20-40) % Austin % (Auto) 8.5 (2-11) % Eos % (Auto) 2.0 (0-4) % Baso % (Auto) 0.4 (0-2) % Lymph # (Auto) 1.0 L (1.2-4.9) X10*3/uL Austin # (Auto) 1.1 (0.1-1.2) X10*3/uL Eos # (Auto) 0.3 (0.0-0.4) X10*3/uL Baso # (Auto) 0.1 (0.0-0.2) X10*3/uL Abs Immat Gran (auto) 0.05 H (0.00-0.03) X10*3/uL Absolute Neuts (auto) 10.9 H (2.0-8.3) x10*3/uL Absolute Nucleated RBC 0.000 (0.0-0.012) X10*3/uL Nucleated RBC % (auto) 0.0 (0.0-0.2) /100WBC Sodium 138 (135-145) mmol/L Potassium 4.7 (3.3-5.1) mmol/L Chloride 105 (96-108) mmol/L Carbon Dioxide 21 L (22-29) mmol/L Anion Gap 17 (12-20) BUN 9 (9-16) mg/dL Creatinine 0.59 (0.5-1.4) mg/dL Estim Creat Clear Calc 137.7 Estimated GFR > 60 Random Glucose 97 (60-115) mg/dL Lactic Acid 3.1 H* (0.5-2.0) mmol/L Lactic Acid F/U @ 2Hr 3.4 H* (0.5-2.0) mmol/L Lactic Acid F/U @ 4Hr 2.2 H* (0.5-2.0) mmol/L Calcium 8.5 (8.4-10.2) mg/dL Magnesium 2.3 (1.6-2.6) mg/dL Total Bilirubin 0.3 (0.0-1.0) mg/dL AST 68 H (5-31) U/L ALT 36 H (0-31) U/L Alkaline Phosphatase 110 (39-117) U/L Total Protein 8.3 H (6.5-8.0) g/dL Albumin 4.5 (3.5-5.0) g/dL Levetiracetam <2.0 L (6.0-46.0) mcg/mL Influenza Type A (PCR) NEGATIVE (Negative) Influenza Type B (PCR) NEGATIVE (Negative) RSV RNA Qual (PCR) NEGATIVE (Negative) SARS-CoV-2 RNA (RT-PCR) POSITIVE A (Negative) S. pyogenes GrpA ANGELA Negative (Negative) Discharge Plan Discharge Clinical Impression: COVID-19 Patient Disposition: Home, Self-Care Instructions: COVID-19 (Coronavirus Disease 2019) (ED), Face Coverings (Masks) and COVID-19 (ED), How to Recover from COVID-19 at Home (ED) Additional Instructions: You were found to be positive for COVID, this is the likely precipitating factor the caused a breakthrough seizure. See home care instructions. Be sure to take your seizure medications as directed. Follow up with your primary care provider as needed. Prescriptions: No Action ibuprofen 400 mg tablet 400 mg PO Q8H PRN (Reason: fever or pain) Qty: 20 0RF cephalexin 500 mg capsule 500 mg PO QID Qty: 28 0RF doxycycline hyclate 100 mg tablet 100 mg PO BID Qty: 14 0RF risperidone 0.5 mg tablet 0.5 mg PO BID lamotrigine 100 mg tablet 100 mg PO BID levetiracetam 500 mg tablet PO topiramate 25 mg tablet 25 mg PO BID buspirone 5 mg tablet 5 mg PO TID cetirizine 10 mg tablet 10 mg PO DAILY Interventions: ED Discharge Assessment Last Done: 08/03/24 03:38 Discharge Date/Time: 08/03/24 03:40 Print Language: Grenadian
[2024-08-02 21:08] VITALS: BP 113/52; PULSE 109; RESP 18; TEMP 37; O2SAT 94
[2024-08-02] MEDS: 0.9 % Sodium Chloride 1,000 ML 999 ML IV (21:08)
[2024-08-02 21:21] LABS: IDNOW Serial# 6674DD1D; Strep A Nucleic Acid Negative (Negative)
[2024-08-02] MEDS: levETIRAcetam 750 MG in 0.9 % Sodium Chloride 100 ML 430 MG IV (22:06)
[2024-08-02] MEDS: lamoTRIgine 100 MG TABLET PO (22:07)
--- NOTE | 2024-08-02 22:07 | PC.NURSE ---
IVF/medication administered per provider order.
[2024-08-02 22:18] LABS: Reflex Lactate? Lactic Acid Added
--- NOTE | 2024-08-02 22:37 | PC.NURSE ---
delay in repeat reflex lactic draw d/t IVF still currently infusing at this time. will redraw s/p IVF infusion.
[2024-08-02 23:14] VITALS: BP 124/75; PULSE 107; RESP 18; TEMP 37.6; O2SAT 97
--- NOTE | 2024-08-02 23:14 | PC.NURSE ---
repeat lactic obtained/sent to lab.
[2024-08-02] MEDS: Acetaminophen 325 MG TABLET 975 MG PO (23:20)
[2024-08-02 23:41] LABS: ~Lactic Acid-LAB USE ONLY 3.4 mmol/L (0.5-2.0)
[2024-08-03 01:17] LABS: Reflex Lactate? 2 Y
[2024-08-03 01:31] VITALS: BP 106/58; PULSE 112; RESP 20; TEMP 37.3; O2SAT 98
[2024-08-03 01:59] LABS: ~Lactic Acid-LAB USE ONLY 2.2 mmol/L (0.5-2.0)
[2024-08-03 03:25] VITALS: BP 100/53; PULSE 104; RESP 20; TEMP 36.8; O2SAT 98
[2024-08-03 03:38] VITALS: BP 100/53; PULSE 104; RESP 20; TEMP 36.8; O2SAT 98
[2024-08-06 01:24] LABS: Levetiracetam Keppra <2.0 mcg/mL (6.0-46.0)
== END 2024-08-03 03:40 | disposition home or self-care (01) ==
PROVIDERS: Emergency Provider Emergency Medicine; PCP Physician Assistant
DX: U07.1 COVID-19 (principal); M25.572 Pain in left ankle and joints of left foot; R56.9 Unspecified convulsions; J02.9 Acute pharyngitis, unspecified; R50.9 Fever, unspecified
CPT/HCPCS: 0241U; 36415; 73610; 80053; 80177; 83605; 83735; 85025; 87651; 93005; 96361; 96374; 99285; J1953

== ENCOUNTER → 2024-08-02 19:57 | Outpatient (BNV) | payer OTHER, SELFPAY | PROVIDERS: Emergency Provider Emergency Medicine; PCP Physician Assistant; Visit Provider Radiology Diagnostic Radiology | DX: R56.9 Unspecified convulsions (principal); W19.XXXA Unspecified fall, initial encounter | CPT/HCPCS: 73610 ==

== ENCOUNTER → 2024-08-02 20:05 | Outpatient (BNV) | payer OTHER, SELFPAY | PROVIDERS: Emergency Provider Emergency Medicine; PCP Physician Assistant; Visit Provider Internal Medicine | DX: R00.0 Tachycardia, unspecified (principal) | CPT/HCPCS: 93010 ==

== ENCOUNTER 2024-10-14 11:43 | Outpatient (AMB) | payer OTHER, SELFPAY ==
--- NOTE | 2024-10-14 12:06 | MHC.OFFVIS ---
Intake Visit Reasons: 2 mnts Allergies From Percocet Adverse Reaction (Unknown, Uncoded 08/02/24 19:56) NAUSEA & VOMITING From Vicodin Adverse Reaction (Unknown, Uncoded 08/02/24 19:56) NAUSEA & VOMITING Medication List - Last Reconciled 10/14/24 by Caleb Rausch MD buspirone 5 mg PO TID cephalexin 500 mg PO QID cetirizine 10 mg PO DAILY doxycycline hyclate 100 mg PO BID hydroxyzine HCl 50 mg PO TID ibuprofen 400 mg PO Q8H PRN lamotrigine 100 mg PO BID levetiracetam mg PO risperidone 0.5 mg PO BID sumatriptan succinate take 1 tab at onset of headache; if no relief may repeat 1 tab after at least 2 hrs; max = 4 tabs/24 hr PO topiramate 25 mg PO BID HPI Comments Details: 39 yo RH woman with diagnoses of 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 Her seizures started at age 18 on a New Year's elaine when she might have taken some alcohol but no hard drugs. She apparently passed out and was taken to ER. She had no recollection of what had happened. Since then, on and off, she continued to have such spells. She was getting an odd feeling before the spell. She felt tunnel vision, headache, sensitivity to light, body feeling like jello, and every sound getting muffled, like she was slipping away. She was told that during the episode, she shook. No incontinence but had some minor injuries related to seizures. She was initially put on Keppra and then in [place] she was switched to Dilantin, which she stopped because of side effects. She said that she had headaches from Keppra, and lamotrigine was also added with a plan to stop Keppra and use lamotrigine. She is presenting with seizures and associated neurological symptoms. She had a seizure on August 02 concurrent with a COVID-19 infection, leading to a hospital admission. Her healthcare providers suspected these were breakthrough seizures due to COVID-19. The patient reports ongoing neurological symptoms, including difficulty swallowing and persistent headaches, described as severe and constant. Medication compliance is noted with an increased dosage of Keppra to 750 mg twice daily, along with lamotrigine and topiramate. She underwent a 48-hour EEG in June, and her last ocular health check occurred two years ago, prompting a pending re-evaluation per medical advice. [facility] Medical History (Updated 10/14/24 @ 12:14 by Caleb Rausch MD) Peripheral neuropathy Migraine without aura Epilepsy Social History (Updated 11/28/22 @ 12:27 by Destiny Steinberg [facility]) Alcohol intake: current Alcohol intake frequency: a few times a week Patient Tobacco Use Status: Never used Tobacco Current occupational status: unemployed Current occupation: right hand dominant Review of Systems Const Details: - Neurologic: Reports recent seizure on August 02, difficulty swallowing, persistent headaches. - Ophthalmologic: Last eye examination was two years ago; no other symptoms discussed. - Respiratory System: No symptoms discussed; note of past COVID-19 infection. - Musculoskeletal: No symptoms discussed. Physical Exam Neuro Other: Mental Status: Alert and oriented to person, place, and time. Normal attention. Normal spontaneous speech, fluency, and comprehension. No obvious issues with mood and memory. Affect is appropriate. Cranial Nerves: CN II: Visual ashley full to confrontation, visual acuity intact. CN III, IV, : Pupils equal, round, reactive to light and accommodation. Extraocular movements are normal. CN V: Facial sensation is normal. CN VII: Facial movements symmetrical. CN VIII: Hearing intact to bedside conversation is normal. CN IX, X: Palate elevates symmetrically. CN XI: Shoulder shrug and head turn symmetrical. CN XII: Tongue midline without atrophy or fasciculations. Extrapyramidal: Full facial expressions and blinking. No rigidity. Movements are appropriate with no tremor or abnormality. Speech: Normal; no dysarthria or tremor. Assessment & Plan Assessment & Plan (1) Epilepsy: Comment: Meds tried for epilepsy: Dilantin, Keppra, Lamotrigine, Topiramate Amb EEG at [facility] in 2024: B/L sharp waves with b/l seizure focus NCV/EMG LE (in office) Mild bilateral peroneal motor neuropathy with intact sensory response. 05/21/24.? EEG at off in Mar 2024: WNL Code(s): G40.909 - Epilepsy, unspecified, not intractable, without status epilepticus Category: Medical Qualifiers: Epilepsy type: unspecified Intractability: not intractable Status epilepticus: without status epilepticus Qualified Code(s): G40.909 - Epilepsy, unspecified, not intractable, without status epilepticus (2) Migraine without aura and without status migrainosus, not intractable: Comment: Meds tried for migraine: Topiramate, Ibuprufen Code(s): G43.009 - Migraine without aura, not intractable, without status migrainosus Category: Medical Plan Impressoin: a: Epilepsy with complex partial seizure do b: Migraine w/o aura Rec: a: Lamotrigine 150mg bid b: Levetiracetam 750mg bid c: Topiramate 50mg bid d: Sumatriptan 50mg a day as needed e: MRI brain WWO Orders: Orders MR head/brain wo/w con Today G40.909 - Epilepsy, unspecified, not intractable, without status epilepticus Medications: New lamotrigine 150 mg PO BID 180 tabs 1RF topiramate 50 mg PO BID 180 tabs 1RF 90 days levetiracetam 750 mg PO BID 180 tabs 1RF Changed From sumatriptan succinate take 1 tab at onset of headache; if no relief may repeat 1 tab after at least 2 hrs; max = 4 tabs/24 hr PO To sumatriptan succinate 50 mg orally one a day as needed; 10 tabs 5RF 30 days Coding Level of Care Code Est Pt Level 4 (79776) Diagnoses Nonintractable epilepsy without status epilepticus, unspecified epilepsy type G40.909 Epilepsy type: unspecified Intractability: not intractable Status epilepticus: without status epilepticus Migraine without aura and without status migrainosus, not intractable G43.009
--- OUTSIDE RECORDS SUMMARY | 2024-10-14 13:16 | XMS_ITS | Encounter Summary ---
Author Organization [facility] Address [address] [place] [address] Phone Care Team Providers Care Filter Changing Technician Name Role Phone Pamela Gutierrez MD Unavailable [email or web address] Maya Rashid, May Sonya DECISION SCIENCE ANALYST Primary Care Pr ovider Claritza Sena PHARMACY ASSOCIATE Unavailable ndelabar Claritza Sena PHARMACY ASSOCIATE Unavailable ndelabar Thalia Mckinney Primary Care Provider Encounter Details Date Type Department Care Team (Late st Contact Info) Description 07/28/2022 Procedure Pass [address] [place] [address] Social History Tobacco Use Types Packs/Day Years Used Date Smoking Tobacco: Former Smokeless Tobacco: Never Alcohol Use Standard Drinks/Week Comments Yes 0 (1 standard drink = 0.6 oz pur e alcohol) social Education Answer Date Recorded Are you interested in more education? Not on kate e 06/23/2022 Are you concerned about learning? Not on file 06/23/2022 No 06/23/2022 No 06/23/2022 Digital Access Answer Date Recorded No 07/21/2022 No 07/21/2022 Reliable internet access at home? Not on file 07/21/2022 Device with a working camera? Not on file Intimate Partner Violence Answer Date R ecorded Are you denied basic needs s uch as food, clothing, or medical care? No 04/11/2022 In the past 12 months have y ou been in a relationship with a person who hurts, threatens, or tries to control you? No 04/11/2022 Are you denied basic needs s uch as food, clothing, or medical care? No 04/11/2022 In the past 12 months have y ou been in a relationship with a person who hurts, threatens, or tries to control you? No 04/11/2022 Comments No Sex and Gender Information Value Date Recorded Sex Assigned at Not on file Legal Sex Female 9:09 PM EDT Gender Identity Not on file Sexual Orientation Not on file Occupation Industry Job Start Date Job End Date Working Not on file Not on file Not on file documented as of this encounter Plan of Treatment Upcoming Encounters Date Type Department Care Team (Late st Contact Info) Description 10/23/2024 11:30 AM EDT Appointment [facility], X-Ray - [address] [address] Thalia Mckinney PA [address] [place] [address] [place] [phone] documented as of this encounter Visit Diagnoses Not on filedocumented in this encounter Care Teams Filter Changing Technician Relationship Specialty Start Date End Date Maya Rashid May JULIANNE Hassan [email or web address] PCP - General Nurse Practitioner 04/11/22 03/31/24 Thalia Mckinney PA [address] [place] [address] [place] [phone] PCP - General Physician Franchise Broker 04/01/24 Pamela Gutierrez MD [email or web address] Insurance Assigned Provider 10/01/21 11/04/22 Claritza Sena LCSW [address] [place] [id number] luis [email or web address] Social Work 11/23/23 12/19/23 Claritza Sena, PHARMACY ASSOCIATE [address] [place] [address] [email or web address] 03/04/24 04/09/24 documented as of this encounter Additional Source Comments The information contained in this document represents components of the legal health record. It is not the complete legal health record.[facility]
--- OUTSIDE RECORDS SUMMARY | 2024-10-14 13:16 | XMS_ITS | Clinical Summary ---
Author Organization [facility] Address [address] [place] [phone] Phone Care Team Providers Care Boilermaker Mechanic Name Role Phone Thalia Moss Primary Care Provider Encounters Date Type Department Care Team Description 07/25/2024 10:56 AM EDT - 07/25/2024 11:59 PM EDT Hospital Encounter [facility] [address] [place] [phone] Discharge Disposition: Home or Self Care 07/24/2024 11:00 AM EDT - 07/24/2024 11:59 PM EDT Hospital Encounter [facility] [address] [place] [phone] Discharge Disposition: Home or Self Care 07/23/2024 8:59 AM EDT - 07/23/2024 11:59 PM EDT Hospital Encounter [facility] [address] [place] [phone] Discharge Disposition: Home or Self Care from Last 3 Months Social History Tobacco Use Types Packs/Day Years Used Date Smoking Tobacco: Never Assessed Comments Unknown Sex and Gender Information Value Date Recorded Sex Assigned at Not on file Legal Sex Female 10:20 AM EDT Gender Identity Not on file Sexual Orientation Not on file Plan of Treatment Health Maintenance Due Date Last Done Comments Hepatitis B Vaccines (1 of 3 - 19+ 3-dose series) 08/19/2006 Cervical Cancer Screening: P ap Smear 08/19/2008 HPV Vaccines (2 - 3-dose series) 09/29/2009 09/01/2009 COVID-19 Vaccine (3 - 2023-2 5 season) 2023 06/24/2020, 06/03/2020 Depression Screening 02/27/2024 HIV Screening 05/07/2024 Hepatitis C Screening 05/07/2024 Social Influencers of Health Screening 05/07/2024 Influenza Vaccine (#1) 2024 01/10/2024 DTaP,Tdap,and Td Vaccines (3 - Td or Tdap) 03/26/2033 03/26/2023, 09/01/2009 HIB Vaccines Aged Out No longer eligi ble based on patient's age to complete this topic Hepatitis A Vaccines Aged Out No long er eligible based on patient's age to complete this topic IPV Vaccines Aged Out No longer eligi ble based on patient's age to complete this topic MMR Vaccines Aged Out No longer eligi ble based on patient's age to complete this topic Meningococcal ACWY Vaccine Aged Out N o longer eligible based on patient's age to complete this topic Meningococcal B Vaccine Aged Out No l onger eligible based on patient's age to complete this topic Pneumococcal Vaccine: Pediatrics (0 to 5 Years) and At-Risk Patients (6 to 49 Years) Aged Out No longer eligible b ased on patient's age to complete this topic RSV Immunization Patients Under 20 months Aged Out No longer eligible b ased on patient's age to complete this topic Varicella Vaccines Aged Out No longer eligible based on patient's age to complete this topic Procedures Procedure Name Priority Date/Time Associated Diagnosis Comments CONTINUOUS EEG Routine 07/25/2024 11:20 AM EDT Epilepsy, unspecified, not intractable, without status epilepticus ([facility] V24, CMS/[facility] V28) CONTINUOUS EEG Routine 07/24/2024 11:30 AM EDT Epilepsy, unspecified, not intractable, without status epilepticus (CMS/HCC V24, CMS/[facility] V28) CONTINUOUS EEG Routine 07/23/2024 11:28 AM EDT Epilepsy, unspecified, not intractable, without status epilepticus (CMS/HCC V24, CMS/[facility] V28) from Last 3 Months Results * Continuous EEG (07/25/2024 11:20 AM EDT) Narrative Caleb Rausch MD - 07/29/2024 11:51 AM EDT Table formatting from the original result was not included. Images from the original result were not included. [facility] [address] [place] [address] Ambulatory Electroencephalogram Report Date of service: 07/25/24 Patient Name: Danae Cook Date of : 1985 Age: 38 y.o. Gender: female Procedure Order: Continuous EEG Ordering Provider: Caleb Rausch MD Reason for Exam: Order Questions Answers Type of monitoring Unmonitored With video? No Diagnosis listed on Order: Epilepsy, unspecified, not intractable, without status epilepticus ([facility] V24, [facility] V28) Procedure Performed: 48-hour ambulatory EEG EEG Technical Description: This study was performed using the 10-20 [employer] Electrode System placement and single channel EKG electrode on Trex recorder. Settings included: low frequency filter of 1 Hz, high frequency filter of 70 Hz, sensitivity of 7 uV/mm, a display speed of 30 mm/sec, with a 60 Hz notched filter applied as appropriate. Modifications in these parameters were made as necessary for further waveform resolution. Video Recording: No Description: This is a 16 channel 48-hour ambulatory EEG. Patient kept a diary of each day but did not report any significant events. HDF EEG was separately reviewed and included wakefulness and sleep. During wakefulness background EEG rhythm was symmetric alpha posteriorly and lower amplitude faster anteriorly. Abnormalities were noted during both days. Periods of left temporal sharp waves with phase reversal at T3, and sharp wave complexes in the right hemisphere with phase reversal at T4 were noted. There is symmetric right parietal central sharply controlled theta range discharges were noted. Cardiac lead did not reveal any significant abnormality. Impression: Abnormal EEG suggestive of bihemispheric seizure focus. Caleb Rausch MD NEUROLOGY ORDERABLES Final Result * Continuous EEG (07/24/2024 11:30 AM EDT) Caleb Hendrickson MD - 07/29/2024 11:49 AM EDT Table formatting from the original result was not included. Images from the original result were not included. [facility] [address] [place] [address] Ambulatory Electroencephalogram Report Date of service: 07/24/24 Patient Name: Danae Cook Date of : 1985 Age: 38 y.o. Gender: female Procedure Order: Continuous EEG Ordering Provider: Caleb Rausch MD Reason for Exam: Order Questions Answers Type of monitoring Unmonitored With video? No Diagnosis listed on Order: Epilepsy, unspecified, not intractable, without status epilepticus (CMS/HCC V24, CMS/HCC V28) This is a recurrent day study. Please see report with final results. Caleb Rausch MD NEUROLOGY ORDERABLES Final Result * Continuous EEG (07/23/2024 11:28 AM EDT) Caleb Hendrickson MD - 09/30/2024 4:49 PM EDT Table formatting from the original result was not included. Images from the original result were not included. [facility] [address] [place] [address] Ambulatory Electroencephalogram Report Date of service: 07/23/24 Patient Name: Danae Cook Date of : 1985 Age: 39 y.o. Gender: female Procedure Order: Continuous EEG Ordering Provider: Caleb Rausch MD Reason for Exam: Order Questions Answers Type of monitoring Unmonitored With video? No Diagnosis listed on Order: Epilepsy, unspecified, not intractable, without status epilepticus (CMS/HCC V24, CMS/HCC V28) This is a recurrent day study. Please see report with final results. Caleb Rausch MD NEUROLOGY ORDERABLES Final Result from Last 3 Months Insurance [facility] Care Teams Boilermaker Mechanic Relationship Specialty Start Date End Date Elroy-Thalia Pelletier PA [address] [place] [address] [place] [address] PCP - General 07/23/24
--- OUTSIDE RECORDS SUMMARY | 2024-10-14 13:16 | XMS_ITS | Clinical Summary ---
Author Organization [facility] Address [address] [place] [address] Care Team Providers Care Bottom Finisher Name Role Phone Unavailable Primary Care Provider Unavailabl e Social History Tobacco Use Types Packs/Day Years Used Date Smoking Tobacco: Never Assessed Comments Unknown Sex and Gender Information Value Date Recorded Sex Assigned at Not on file Legal Sex Female 8:24 AM EST Gender Identity Not on file Sexual Orientation Not on file Plan of Treatment Health Maintenance Due Date Last Done Comments HIV screening 08/19/2000 Hepatitis C screening 08/19/2005 Tetanus adult (Td q 10,TDAP once) 2007 Cervical cancer screening 08/19/2008 Covid-19 vaccine series ( - 2023- season) 2023 Influenza vaccine 10/27/2024 RSV Immunization (1 - 1-dose 75+ series) 08/19/2062 Meningococcal Vaccine Aged Out No ofelia owen eligible based on patient's age to complete this topic Pneumococcal Vaccine (2 - 49 years) Aged Out No longer eligible based on patient's age to complete this topic
== END 2024-10-14 12:22 | disposition home or self-care (01) ==
LOC: HO.HSM 11:44
PROVIDERS: PCP Physician Assistant; Visit Provider Psychiatry & Neurology Neurology
DX: G40.909 Epilepsy, unspecified, not intractable, without status epilepticus (principal); G43.009 Migraine without aura, not intractable, without status migrainosus
CPT/HCPCS: 99214

== ENCOUNTER 2024-10-30 10:56 | Outpatient (REF) | payer OTHER, SELFPAY ==
--- NOTE | ~2024-10-30 | MR_ITS ---
EXAMINATION: MR BRAIN WITHOUT AND WITH CONTRAST CLINICAL INFORMATION: Epilepsy, unspecified. Headaches. COMPARISON: No prior MRI. CT head TECHNIQUE: Multiplanar, multisequence MRI of the brain was obtained before and after the intravenous administration of 9 mL Gadavist. Examination performed on a 1.5 Pita Siemens high-field unit. FINDINGS: There is no diffusion restriction. There is no intracranial hemorrhage, acute infarction, mass effect, or edema. Ventricles, sulci, and cisterns are normal in size and configuration for patient age. No shift of midline. No abnormal hemosiderin deposition is identified. The hippocampi are normal in signal and volume bilaterally. The temporal horns are symmetric. There is no evidence of heterotopic baugh matter, or cortical dysplasia. There are a few scattered punctate foci of white matter T2 hyperintensity predominantly in the frontal lobe deep white matter, nonspecific. There is no abnormal intra or extra-axial contrast enhancement. Midline structures appear normally formed. The pituitary gland appears normal. Posterior fossa structures appear normal. Cerebellar tonsils are appropriately located. Major flow voids are preserved within the skull base. The globes and orbital contents demonstrate no abnormalities. Paranasal sinuses are clear bilaterally. The mastoids and tympanic cavities are normally aerated. Extracranial soft tissues demonstrate no abnormalities. No suspicious bone marrow changes are evident. Atlantoaxial joint is normal. MR/MR head/brain wo/w con IMPRESSION: 1. No evidence of intracranial hemorrhage, acute infarction, mass effect, edema, or abnormal contrast enhancement. 2. A few scattered white matter T2 hyperintense foci, predominantly within the frontal lobes, nonspecific however findings which have been described with migraines. 3. There is no evidence of heterotopic baugh matter, hippocampal atrophy, or cortical dysplasia. Electronically signed by: Miky Galo MD 10/30/2024 12:21 PM EDT
--- OUTSIDE RECORDS SUMMARY | 2024-10-30 12:38 | XMS_ITS | Clinical Summary ---
Author Organization [facility] Address [address] [place] [address] Care Team Providers Care Shoe Handler Name Role Phone Unavailable Primary Care Provider [...] screening 08/19/2008 Covid-19 vaccine series ( - 2023-25 season) 2023 Influenza vaccine 10/27/2024 RSV Immunization (1 - 1-dose 75+ series) 08/19/2062 Meningococcal B Vaccine Aged Out No l onger eligible based on patient's age to complete this topic Meningococcal Vaccine Aged Out No ofelia owen eligible based on patient's age to complete this topic Pneumococcal Vaccine (2 - 49 years) Aged Out No longer eligible based on patient's age to complete this topic
--- OUTSIDE RECORDS SUMMARY | 2024-10-30 12:38 | XMS_ITS | Encounter Summary ---
Author Organization [facility] Address [address] [place] [address] Phone Care Team Providers Care Catalyst Operator Chief Name Role Phone Thalia Mckinney Primary Care Provider Encounter Details Date Type Department Care Team (Latest Contact Info) Description 09/23/2024 Transcribe Orders Virtual Department [address] [place] [phone] Thalia Moss [address] [place] [address] [email or web address] Other gastritis without bleeding (Primary Dx) Social History Tobacco Use Types Packs/Day Years Used Date Smoking Tobacco: Former Cigarettes 1 04/18/2020 - 02/26/2005 Smokeless Tobacco: Never Comments:Hx of smoking, quit for for nearly three years. Started smoking again in January 2024. No hx of smokeless products. Alcohol Use Standard Drinks/Week Comments Not Currently 0 (1 standard drink = 0.6 oz pure alcohol) had a drink three weeks ago. Was drinking 2-3 handles of vodka. Education Answer Date Recorded Are you interested [...] or tries to control you? No 04/11/2022 Education Answer Date Recorded What is the highest level of school you have completed or the highest degree you have received? 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 Please refer to the clinical notes by the Speech Pathologist for detailed description of the Modified Swallow findings. FLUOROSCOPY TIME: 1 minute 23 seconds NUMBER OF IMAGES: [id number] The examination was performed by RRAWaylon. Dr. Ej Barrientos was immediately available for portions of the procedure as needed. ATTESTATION: I, Ej Barrientos as teaching physician, have reviewed the images for this case and if necessary edited the report originally created by Waylon Herbert. Narrative 10/24/2024 8:36 AM EDT FL MODIFIED BARIUM SWALLOW HISTORY:Reflux gastritis. Dysphagia. COMPARISON:No recent relevant priors available for comparison. TECHNIQUE: Fluoroscopic assistance was provided for the speech pathologist during video swallow. The patient was observed in the lateral projection while being fed various consistencies of barium (thin liquids, applesauce, pudding, bread and cracker). FINDINGS: The oral and pharyngeal stages of swallowing will be reported separately by the Department of Speech and Language Pathology. No sandra aspiration, deep laryngeal penetration, nasopharyngeal reflux or cricopharyngeal achalasia demonstrated with all trialed barium consistencies. No significant pharyngeal residue. Procedure Note Ej Barrientos MD - 10/24/2024 FL MODIFIED BARIUM SWALLOW HISTORY:Reflux gastritis. Dysphagia. COMPARISON:No recent relevant priors available for comparison. TECHNIQUE: Fluoroscopic assistance was provided for the speech pathologist duringvideo swallow. The patient was observed in the lateral projection whilebeing fed various consistencies of barium (thin liquids, applesauce,pudding, bread and cracker). FINDINGS: The oral and pharyngeal stages of swallowing will be reported separatelyby the Department of Speech and Language Pathology. No sandra aspiration, deep laryngeal penetration, nasopharyngeal reflux orcricopharyngeal achalasia demonstrated with all trialed bariumconsistencies. No significant pharyngeal residue. IMPRESSION: No sandra aspiration was observed during this examination. Please refer to the clinical notes by the Speech Pathologist for detaileddescription of the Modified Swallow findings. FLUOROSCOPY TIME: 1 minute 23 seconds NUMBER OF IMAGES: [id number] The examination was performed by Waylon PICKERING. Dr. Ej Barrientos wasimmediately available for portions of the procedure as needed. ATTESTATION: I, Ej Barrientos as teaching physician, have reviewed theimages for this case and if necessary edited the report originally createdby Waylon Herbert. Thalia BAH IMG FL EXAMS Final Result documented in this encounter Visit Diagnoses Diagnosis Other gastritis without bleeding- Primary Other gastritis without bleeding- Primary documented in this encounter Care Teams Catalyst Operator Chief Relationship Specialty Start Date End Date Thalia Mckinney PA [address] [place] [address] [place] [phone] PCP - General Physician Copier Field Service Technician 04/01/24 documented as of this encounter Additional Source Comments The information contained in this document represents components of the legal health record. It is not the complete legal health record.[facility]
--- OUTSIDE RECORDS SUMMARY | 2024-10-30 12:38 | XMS_ITS | Encounter Summary ---
Author Organization [facility] Address [address] [place] [phone] Phone Care Team Providers Care Biztalk Administrator Name Role Phone Pamela Gutierrez MD Unavailable lennox ([employer]) Maya Rashid, May Sonya LABORATORY CUREMAN Primary Care Pr ovider Claritza Sena MEDICAL TECHNOLOGIST MICROBIOLOGY Unavailable ndelabar Claritza SenaW Unavailable ndelabar Thalia Mckinney Primary Care Provider Encounter Details Date Type Department Care Team (Late st Contact Info) Description 07/28/2022 Procedure Pass [address] [place] [address] Social History Tobacco Use Types Packs/Day Years [...] on file documented as of this encounter Visit Diagnoses Not on filedocumented in this encounter Care Teams Biztalk Administrator Relationship Specialty Start Date End Date Maya Rashid, May JULIANNE Hassan [email or web address] PCP - General Nurse Practitioner 04/11/22 03/31/24 Thalia Mckinney PA [address] [place] [address] [place] [phone] PCP - General Physician Chick Room Supervisor 04/01/24 Pamela Gutierrez MD ([employer]) Insurance Assigned Provider 10/01/21 11/04/22 Claritza Sena LCSW [address] [place] [phone] luis [facility] Social Work 11/23/23 12/19/23 Claritza Sena LCSW [address] [place] [phone] luis [facility] Social Work 03/04/24 04/09/24 documented as of this encounter Additional Source Comments The information contained in this document represents components of the legal health record. It is not the complete legal health record.[facility]
--- OUTSIDE RECORDS SUMMARY | 2024-10-30 12:38 | XMS_ITS | Clinical Summary ---
Author Organization [facility] Address [address] [place] [address] Phone Care Team Providers Care Review Engineer Name Role Phone Thalia Mckinney Primary Care Provider Allergies Active Allergy Reactions Criticality Noted Date Comments Oxycodone-Acetaminophen Nausea And Vomiting Low Hydrocodone-Acetaminophen 03/21/2020 Medications phenytoin (DILANTIN) 100 MG ER capsule Take 2 capsules (200 mg total) by mouth 2 (two) times a day. 126 capsule 03/21/2020 Active levETIRAcetam (KEPPRA) 100 mg/mL solution Take by mouth 2 (two) times a day. Active cyclobenzaprine (FLEXERIL) 10 MG tablet Take 1 tablet (10 mg total) by mouth 3 (three) times a day as needed. 15 tablet 04/11/2022 Active Active Problems Problem Noted Date Diagnosed Date Epidermal inclusion cyst 11/05/2019 Assessment & Plan (11/05/2019 9:04 AM EDT): Incised and secretions removed, care discussed; may reaccumulate Encounters Date Type Department Care Team Description 10/23/2024 10:48 AM EDT - 10/23/2024 11:59 PM EDT Hospital Encounter [facility], X-Ray - [address] [address] Thalia Mckinney PA Discharge Disposition: Home or Self Care 09/23/2024 Transcribe Orders Virtual Department [address] [place] [address] Carlyu-Thalia Thompson Other gastritis without bleeding (Primary Dx) from Last 3 Months Immunizations Immunization Administration Dates Next Due COVID-19 (Pre-12/18) Pfizer Vaccine, mRNA, PF ,06/03/2020 Family History Medical History Relation Comments No Known Problems Brother Breast cancer Maternal Grandmother Alzheimer's disease Unspecified Dementia Unspecified Diabetes Unspecified Relation Status Comments Brother Father Alive Maternal Grandfather Maternal Grandmother Alive Mother Alive Paternal Grandfather Paternal Grandmother Sister Alive Unspecified Social History Tobacco Use Types Packs/Day Years Used Date Smoking Tobacco: Former Cigarettes 1 04/18/2020 - 02/26/2005 Smokeless Tobacco: Never Tobacco Cessation:Counseling Given: Not Answered Comments:Hx of smoking, quit for for nearly [...] file Not on file Not on file Drafter Geophysical Not on file Not on file Not on file Last Filed Vital Signs Vital Sign Reading Time Taken Comments Blood Pressure 117/80 04/11/2022 6:47 PM EST Pulse 90 04/11/2022 6:47 PM EST Temperature 37 C (98.6 F) 04/11/2022 4:41 PM EST Respiratory Rate 20 04/11/2022 6:47 PM EST Oxygen Saturation 98% 04/11/2022 6:47 PM EST Inhaled Oxygen Concentration - - Weight 90.7 kg (200 lb) 04/11/2022 6:47 PM EST Height 162.6 cm (5' 4 ) 04/11/2022 6:47 PM EST Body Mass Index 34.33 04/11/2022 6:47 PM EST Plan of Treatment Health Maintenance Due Date Last Done Comments DEPRESSION SCREENING 1999 HIV ONE-TIME SCREENING (18-6 5 YEARS) 08/19/2005 PHENYTOIN (DILANTIN) LEVEL 03/21/2021 03/21/2020 SCREENING FOR DIABETES 03/21/2023 03/21/2020 INFLUENZA VACCINE (#1) 2024 COVID-19 VACCINE (2024-2 6 season) 2024 06/24/2020, 06/03/2020 SMOKING Hx and SMOKELESS TOBACCO SCREENING 03/24/2025 03/24/2024 PAP SMEAR 02/05/2027 02/06/2024 Adult Td,Tdap Booster 03/26/2033 03/26/2023 , 09/01/2009 HEPATITIS C SCREENING Completed 05/09/2021 HEPATITIS A VACCINES Aged Out No long er eligible based on patient's age to complete this topic HIB VACCINES Aged Out No longer eligi ble based on patient's age to complete this topic MENINGOCOCCAL VACCINES (ACWY) Aged Out No longer eligible based on patient's age to complete this topic MENINGOCOCCAL VACCINES (B) Aged Out N o longer eligible based on patient's age to complete this topic PNEUMOCOCCAL VACCINES (0-49 years) Aged Out No longer eligible b ased on patient's age to complete this topic Medical Devices Not on file Procedures Procedure Name Priority Date/Time Associated Diagnosis Comments FL (SPEECH) VIDEO SWALLOW STUDY Routine 10/23/2024 12:02 PM EDT Other gastritis without bleeding PAP TEST Routine 02/06/2024 12:00 AM EST DILANTIN LEVEL STAT 03/21/2020 3:48 PM EST from Last 3 Months or Most Recently Relevant to Health Maintenance Results * FL (Speech) Video Swallow Study [...] performed by Waylon PICKERING. Dr. Ej Barrientos was immediately available for [...] Thalia BAH IMG FL EXAMS Final Result * Pap Test (02/06/2024 12:00 AM EST) 02/06/2024 02/08/2024 9:0 5 AM EST Narrative SEE NARRATIVE - 02/13/2024 3:36 [place] [address] Internal Audit Senior Manager: Semaj Marcus MD STATEMENT REQUEST CLERK Cytology Report FINAL DIAGNOSIS A. PAP SMEAR (THIN PREP) CE: SPECIMEN ADEQUACY: Satisfactory for evaluation; transformation zone present. INTERPRETATION: NEGATIVE FOR INTRAEPITHELIAL LESION OR MALIGNANCY. Due to blood, the specimen was reprocessed with 10% Glacial Acetic Acid to increase cellularity. This specimen was analyzed by the automated ThinPrep Imaging System ([employer].) and manually rescreened by a bi manager and/or pathologist. Electronically Signed Out By: Semaj Marcus MD By his/her signature above, the pathologist listed as making the Final Diagnosis certifies that he/she has personally reviewed this case and confirmed or corrected the diagnosis. The Pap test is a screening test primarily for squamous cancers and precursors and has associated false-negative and false-positive results. New technologies such as liquid-based preparations may decrease but will not eliminate all false-negative results. Regular sampling and follow-up of unexplained clinical signs and symptoms are recommended to minimize false negative results. CLINICAL HISTORY Date of Last Menstrual Period: 02-05-2024 Other Clinical Conditions: Screening Pap SPECIMEN SOURCE A: PAP SMEAR (THIN PREP) CE Patient Name: DANAE COOK : 1985 (Age: 38) Sex: F Institution: [facility] Location: [facility] Date of Collection: 02/06/2024 Date of Reported: 02/13/2024 15:36 Results to: Thalia Rios us Thalia BAH CYTOLOGY ORDER RASHAUN Final Result SEE NARRATIVE * (ABNORMAL) Dilantin level (03/21/2020 3:48 PM EST) DILANTIN <0.8(L) 10 - 20 ug/mL [facility] Blood 03/21/2020 3:48 PM EST 03/21/2020 3:59 PM EST us Ga Sánchez MD LAB BLOOD ORDERABLES Fin al Result [facility] [address] [place] [address] from Last 3 Months or Most Recently Relevant to Health Maintenance [place] [address] [place] [address] ACO [facility] ACO [facility] ACO Care Teams Review Engineer Relationship Specialty Start Date End Date Thalia Mckinney PA [address] [place] [address] [place] [address] PCP - General Physician Population Geneticist 04/01/24 Additional Source Comments The information contained in this document represents components of the legal health record. It is not the complete legal health record.[facility]
--- OUTSIDE RECORDS SUMMARY | 2024-10-30 12:38 | XMS_ITS | Encounter Summary ---
Author Organization [facility] Address [address] [place] [address] Phone Care Team Providers Care Business Performance Analyst Name Role Phone Pamela Gutierrez MD Unavailable [email or web address] Madeline Romeo NP Primary Care Pr ovider Claritza Sena PUNCH MACHINE OPERATOR Unavailable [email or web address] Claritza Sena PUNCH MACHINE OPERATOR Unavailable ndelabar Thalia Mckinney Primary Care Provider Reason for Referral * MRI/CAT Scan - Closed Specialty Diagnoses / Procedures Referred By Ryan murray Referred To Contact Radiology Diagnoses Locked-in state Procedures MRI Brain Madeline Romeo NP Phone: tel: fax: [email or web address]:[email or web address] Referral ID Status Reason Start Date Expiration Date Visits Re quested Visits Authorized [id number] Closed 07/28/2022 1 1 Encounter Details Date Type Department Care Team (Latest Contact Info) Description 07/28/2022 Transcribe Orders Virtual Department [address] [place] [address] Madeline Romeo NP [address] [place] [address] [email or web address] Locked-in state (Primary Dx) Social History Tobacco Use Types [...] documented as of this encounter Results * MRI BRAIN WITHOUT CONTRAST (08/01/2022 1:42 PM EDT) Anatomical Region Laterality Modality Head Magnetic Resonan ce 08/02/2022 6:03 AM EDT Impressions 08/02/2022 9:13 PM EDT No intracranial cause for the reported symptoms identified. Narrative 08/02/2022 9:13 PM EDT MRI BRAIN WITHOUT CONTRAST TECHNIQUE: MRI BRAIN WITHOUT CONTRAST Multi-sequence, multi-planar MRI of the brain was performed without intravenous contrast. COMPARISON: None FINDINGS: Brain Parenchyma: Normal. No evidence of acute infarct, mass lesion, or hemorrhage. Ventricular System and Extra-Axial Spaces: Normal. No evidence of midline shift or hydrocephalus. Extracranial Structures: Arterial flow voids in the skull base are present. Procedure Note Angelo Mccrary MD - 08/02/2022 MRI BRAIN WITHOUT CONTRAST TECHNIQUE: MRI BRAIN WITHOUT CONTRAST Multi-sequence, multi-planar MRI of the brain was performed withoutintravenous contrast. COMPARISON: None FINDINGS: Brain Parenchyma: Normal. No evidence of acute infarct, mass lesion, orhemorrhage. Ventricular System and Extra-Axial Spaces: Normal. No evidence of midlineshift or hydrocephalus. Extracranial Structures: Arterial flow voids in the skull base arepresent. IMPRESSION: No intracranial cause for the reported symptoms identified. May Sonya Rashid MERCHANDISE DISTRIBUTOR IMG MR HEAD/NECK Final Result documented in this encounter Visit Diagnoses Diagnosis Locked-in state- Primary Locked-in state documented in this encounter Care Teams Business Performance Analyst Relationship Specialty Start Date End Date Mary Rashid Madeline JUILANNE Hassan [email or web address] PCP - General Nurse Practitioner 04/11/22 03/31/24 Thalia Mckinney PA [address] [place] [address] [place] [address] PCP - General Physician Woodwork Salvage Inspector 04/01/24 Pamela Gutierrez MD [email or web address] Insurance Assigned Provider 10/01/21 11/04/22 Claritza Sena [address] [address] [email or web address] [employer] Social Work 11/23/23 12/19/23 Claritza Sena, PUNCH MACHINE OPERATOR [address] [place] [address] [email or web address] [employer] Social Work 03/04/24 04/09/24 documented as of this encounter Additional Source Comments The information contained in this document represents components of the legal health record. It is not the complete legal health record.[facility]
--- OUTSIDE RECORDS SUMMARY | 2024-10-30 12:38 | XMS_ITS | Encounter Summary ---
Author Organization [facility] Address [address] [place] [address] Phone Care Team Providers Care Manager Story Name Role Phone Pamela Gutierrez MD Unavailable [email or web address] Madeline Romeo NP Primary Care Pr ovider Claritza Sena STRAND GALVANIZER Unavailable [email or web address] Claritza Sena STRAND GALVANIZER Unavailable [email or web address] Thalia Mckinney Primary Care Provider Encounter Details Date Type Department Care Team (Latest Contact Info) Description 09/21/2022 Transcribe Orders Virtual Department [address] [place] [address] Madeline Romeo NP [address] [place] [address] [email or web address] Chronic sinusitis, unspecified location (Primary Dx) Social History Tobacco Use Types [...] documented as of this encounter Visit Diagnoses Diagnosis Chronic sinusitis, unspecified location- Primary documented in this encounter Care Teams Manager Story Relationship Specialty Start Date End Date Maya Rashid, May JULIANNE Hassan [email or web address] PCP - General Nurse Practitioner 04/11/22 03/31/24 Thalia Mckinney PA [address] [place] [address] [place] [address] PCP - General Physician Talent Acquisition Sourcer 04/01/24 Pamela Gutierrez MD [email or web address] Insurance Assigned Provider 10/01/21 11/04/22 Claritza Sena LCSW [address] [place] [address] [email or web address] Social Work 11/23/23 12/19/23 Claritza Sena LCSW [address] [place] [address] luis [employer] Social Work 03/04/24 04/09/24 documented as of this encounter Additional Source Comments The information contained in this document represents components of the legal health record. It is not the complete legal health record.[facility]
--- OUTSIDE RECORDS SUMMARY | 2024-10-30 12:38 | XMS_ITS | Clinical Summary ---
Author Organization [facility] Address [address] [place] [address] Phone Care Team Providers Care Eye Clinic Manager Name Role Phone Thalia Moss Primary Care Provider Social History Tobacco Use Types Packs/Day Years [...] Vaccines (2 - 3-dose series) 09/29/2009 09/01/2009 Depression Screening 02/27/2024 HIV Screening 05/07/2024 Hepatitis C Screening 05/07/2024 Social Influencers of Health Screening 05/07/2024 COVID-19 Vaccine (3 - 2024-2 6 season) 2024 06/24/2020, 06/03/2020 Influenza Vaccine (#1) 2024 01/10/2024 DTaP,Tdap,and Td [...] on patient's age to complete this topic Insurance [facility] Care Teams Eye Clinic Manager Relationship Specialty Start Date End Date Thalia Moss PA [address] [place] [address] [address] [place], [place] [address] PCP - General 07/23/24
== END 2024-10-30 10:57 | disposition home or self-care (01) ==
LOC: HO.MRI 10:56
PROVIDERS: Visit Provider Psychiatry & Neurology Neurology
DX: G40.909 Epilepsy, unspecified, not intractable, without status epilepticus (principal)
CPT/HCPCS: 70553; A9585

== ENCOUNTER → 2024-10-30 11:03 | Outpatient (BNV) | payer OTHER, SELFPAY | PROVIDERS: Visit Provider Radiology Diagnostic Radiology | DX: G40.909 Epilepsy, unspecified, not intractable, without status epilepticus (principal); R51.9 Headache, unspecified; R90.82 White matter disease, unspecified | CPT/HCPCS: 70553 ==

== ENCOUNTER 2024-12-24 12:24 | Outpatient (REF) | payer OTHER, SELFPAY ==
--- OUTSIDE RECORDS SUMMARY | 2024-12-24 15:47 | XMS_ITS | Clinical Summary ---
Author Organization [facility] Address [address] [place] [address] Phone Care Team Providers Care Poultry Inseminator Name Role Phone Thalia Moss Primary Care [...] - Td or Tdap) 03/26/2033 03/26/2023, 09/01/2009 RSV Immunization Adult Patients (1 - 1-dose 75+ series) 08/19/2062 HIB Vaccines Aged Out No longer eligi [...] patient's age to complete this topic Insurance [facility] Care Teams Poultry Inseminator Relationship Specialty Start Date End Date Thalia Moss PA [address] [place] [address] [address] [place] [address] PCP - General 07/23/24
--- OUTSIDE RECORDS SUMMARY | 2024-12-24 15:47 | XMS_ITS | Encounter Summary ---
Author Organization [facility] Address [address] [place] [address] Phone Care Team Providers Care Explosive Ordnance Disposal Specialist Name Role Phone Pamela Gutierrez MD Unavailable [email or web address] Madeline Romeo NP Primary Care Pr ovider Claritza Sena ESTATE PLANNING ATTORNEY Unavailable ndelabar Claritza Sena ESTATE PLANNING ATTORNEY Unavailable ndelabar Thalia Mckinney Primary Care Provider Reason for Referral * MRI/CAT Scan - Closed Specialty Diagnoses / Procedures Referred By Ryan murray Referred To Contact Radiology Diagnoses Locked-in state Procedures MRI Brain Madeline Romeo NP Phone: tel: fax: [email or web address] Referral ID Status Reason Start Date Expiration Date Visits Re quested Visits Authorized [id number] Closed 07/28/2022 1 1 Encounter Details Date Type Department Care Team (Latest Contact Info) Description 07/28/2022 Transcribe Orders Virtual Department [address] [place] [address] Madeline Romeo NP [address] [place] [address] [email or web address] Locked-in state (Primary Dx) Social History Tobacco [...] Care Team (Late st Contact Info) Description 12/30/2024 9:30 AM EST Procedure visit [facility] [address] [place] [address] Geneva Reilly MD [address] [facility], [address] [place] [address] [email or web address] documented as of this encounter Results * [...] for the reported symptoms identified. May Sonya Rasihd SUPPLY PLANNER IMG MR HEAD/NECK Final Result documented in this encounter Visit Diagnoses Diagnosis Locked-in state- Primary Locked-in state documented in this encounter Care Teams Explosive Ordnance Disposal Specialist Relationship Specialty Start Date End Date Madeline Romeo NP [email or web address] PCP - General Nurse Practitioner 04/11/22 03/31/24 Thalia Mckinney PA [address] [place] [address] [place] [address] PCP - General Physician Tinning Machine Set Up Operator 04/01/24 Pamela Gutierrez MD [email or web address] Insurance Assigned Provider 10/01/21 11/04/22 Claritza Sena LCSW [address] [place] [address] [email or web address] PHC Engineering Patternmaker 11/23/23 12/19/23 Claritza Sena LCSW [address] [place] [address] [email or web address] [employer] Engineering Patternmaker 03/04/24 04/09/24 documented as of this encounter Additional Source Comments The information contained in this document represents components of the legal health record. It is not the complete legal health record.[facility]
--- OUTSIDE RECORDS SUMMARY | 2024-12-24 15:47 | XMS_ITS | Encounter Summary ---
Author Organization [facility] Address [address] [place] [address] Phone Care Team Providers Care Mothers Helper Name Role Phone Pamela Gutierrez MD Unavailable [email or web address] Maya Rashid Madeline Sonya WHITAKER Primary Care Pr ovider Claritza Sena CREDIT COLLECTIONS SPECIALIST Unavailable ndelabar Claritza Sena CREDIT COLLECTIONS SPECIALIST Unavailable ndelabar Thalia Mckinney Primary Care Provider Encounter Details Date Type Department Care Team (Latest Contact Info) Description 09/21/2022 Transcribe Orders Virtual Department [address] [place] [address] Madeline Romeo NP [address] [place] [address] [email or web address] Chronic sinusitis, unspecified location (Primary Dx) Social [...] visit [facility] [address] [place] [address] Geneva Reilly MD [address] [facility], [address] [place] [address] [email or web address] documented as of this encounter Visit Diagnoses Diagnosis Chronic sinusitis, unspecified location- Primary documented in this encounter Care Teams Mothers Helper Relationship Specialty Start Date End Date Madeline Romeo NP [email or web address] PCP - General Nurse Practitioner 04/11/22 03/31/24 Thalia Mckinney PA [address] [place] [address] [place] [address] PCP - General Physician Nuclear Medicine Officer 04/01/24 Pamela Gutierrez MD [email or web address] Insurance Assigned Provider 10/01/21 11/04/22 Claritza Sena LCSW [address] [place] [address] [email or web address] PHC Computer Training Specialist 11/23/23 12/19/23 Claritza Sena LCSW [address] [place] [address] [email or web address] PHC Computer Training Specialist 03/04/24 04/09/24 documented as of this encounter Additional Source Comments The information contained in this document represents components of the legal health record. It is not the complete legal health record.[facility]
--- OUTSIDE RECORDS SUMMARY | 2024-12-24 15:47 | XMS_ITS | Clinical Summary ---
Author Organization [facility] [address] [facility] Address [address] [place] [address] Care Team Providers Care Still Operator Gin Name Role Phone Unavailable Primary Care Provider [...] 10,TDAP once) 2007 Cervical cancer screening 08/19/2008 Influenza vaccine 09/26/2024 Covid-19 vaccine series (2024- season) 2024 RSV Immunization (1 - 1-dose 75+ series) [...]
--- OUTSIDE RECORDS SUMMARY | 2024-12-24 15:47 | XMS_ITS | Encounter Summary ---
Author Organization [facility] Address [address] [place] [address] Phone Care Team Providers Care Faculty Neuropsychologist Name Role Phone Pamela Gutierrez MD Unavailable [email or web address] RashidMay Sonya WHITAKER Primary Care Pr ovider Claritza Sena INSPECTOR OUTSIDE STEAM DISTRIBUTION Unavailable ndelabar Claritza Sena INSPECTOR OUTSIDE STEAM DISTRIBUTION Unavailable ndelabar Thalia Mckinney Primary Care Provider Encounter Details Date Type Department Care Team (Late st Contact Info) Description 07/28/2022 Procedure Pass [address] [place] [address] Social History Tobacco Use Types Packs/Day Years [...] visit [facility] [address] [place] [address] Geneva Reilly MD [address] [facility], [address] [place] [address] [email or web address] documented as of this encounter Visit Diagnoses Not on filedocumented in this encounter Care Teams Faculty Neuropsychologist Relationship Specialty Start Date End Date Maya Rashid Madeline JULIANNE Hassan [email or web address] PCP - General Nurse Practitioner 04/11/22 03/31/24 Thalia Mckinney PA [address] [place] [address] PCP - General Physician Animal Handler 04/01/24 Pamela Gutierrez MD [email or web address] Insurance Assigned Provider 10/01/21 11/04/22 Claritza Sena, INSPECTOR OUTSIDE STEAM DISTRIBUTION [address] [place] [address] [email or web address] It Systems Administrator 11/23/23 12/19/23 Claritza Sena LCSW [address] [place] [address] [email or web address] It Systems Administrator 03/04/24 04/09/24 documented as of this encounter Additional Source Comments The information contained in this document represents components of the legal health record. It is not the complete legal health record.[facility]
--- OUTSIDE RECORDS SUMMARY | 2024-12-24 15:47 | XMS_ITS | Encounter Summary ---
Author Organization [facility] Address [address] [place] [id number] Phone Care Team Providers Care Warehouse Distribution Associate Name Role Phone Thalia Mckinney Primary Care Provider Encounter Details Date Type Department Care Team (Latest Contact Info) Description 09/23/2024 Transcribe Orders Virtual Department [address] [place] [address] Thalia Moss Other gastritis without bleeding (Primary Dx) Social [...] file Not on file Not on file City Bailiff Not on file Not on file Not on file documented as of this encounter Plan of Treatment Upcoming Encounters Date Type Department Care Team (Late st Contact Info) Description 12/30/2024 9:30 AM EST Procedure visit [facility] [address] [place] [address] [place] [address] Geneva Reilly MD [address] [facility], [address] [place] [address] [email or web address] documented as of this encounter Results * [...] Primary documented in this encounter Care Teams Warehouse Distribution Associate Relationship Specialty Start Date End Date Thalia Mckinney PA [address] [place] [address] [place] [phone] PCP - General Physician Cloth Pattern Maker 04/01/24 documented as of this encounter Additional Source Comments The information contained in this document represents components of the legal health record. It is not the complete legal health record.[facility]
== END 2024-12-24 12:25 | disposition home or self-care (01) ==
LOC: HO.LAB 12:24
PROVIDERS: PCP Physician Assistant; Visit Provider Physician Assistant
DX: R50.9 Fever, unspecified (principal)
CPT/HCPCS: 87040

== ENCOUNTER 2025-01-07 15:07 | Outpatient (AMB) | payer OTHER, SELFPAY ==
--- NOTE | 2025-01-07 15:10 | A.OFFVIS_ITS ---
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 Her seizures started at age 18 on a New Year's elaine when she might have taken some alcohol but no hard drugs. She apparently passed out and was taken to ER. She had no recollection of what had happened. Since then, on and off, she continued to have such spells. She was getting an odd feeling before the spell. She felt tunnel vision, headache, sensitivity to light, body feeling like jello, and every sound getting muffled, like she was slipping away. She was told that during the episode, she shook. No incontinence but had some minor injuries related to seizures. She was initially put on Keppra and then in [place] she was switched to Dilantin, which she stopped because of side effects. She said that she had headaches from Keppra, and lamotrigine was also added with a plan to stop Keppra and use lamotrigine. She is presenting for follow-up on epilepsy management and associated symptoms. She experienced a seizure recently, with postictal headache and body aches. Her seizures, generally well-controlled, have a last recorded episode prior to the recent one in July. The current medication regimen includes lamotrigine and levetiracetam, with concerns reported over headaches potentially related to levetiracetam and persistent hand tremors. The patient describes tremors, reduced hand strength, and paresthesia in her extremities. Her white blood cell count was noted to be slightly elevated, prompting scheduled follow-up blood work. She completed a 48-hour EEG at [facility], dated July 23-. [facility] Medical History (Updated 10/14/24 @ 12:14 by Caleb Rausch MD) Peripheral neuropathy Migraine without aura Epilepsy Social History (Updated 11/28/22 @ 12:27 by JACOB Reyes) Alcohol intake: current Alcohol intake frequency: a few times a week Patient Tobacco Use Status: Never used Tobacco Current occupational status: unemployed Current occupation: right hand dominant Review of Systems Narrative - Neurological: Reports seizures, hand tremors, decreased hand strength, headaches, paresthesia in legs, arms, and hands; Denies missing doses of medication. - Hematological: Reports elevated white blood cell count. - Musculoskeletal: Reports body ache. Physical Exam Neuro Other: Mental Status: Alert and oriented to person, place, and time. Normal attention. Normal spontaneous speech, fluency, and comprehension. No obvious issues with mood and memory. Affect is appropriate. Cranial Nerves: CN II: Visual ashley full to confrontation, visual acuity intact. CN III, IV, : Pupils equal, round, reactive to light and accommodation. Extraocular movements are normal. CN V: Facial sensation is normal. CN VII: Facial movements symmetrical. CN VIII: Hearing intact to bedside conversation is normal. CN IX, X: Palate elevates symmetrically. CN XI: Shoulder shrug and head turn symmetrical. CN XII: Tongue midline without atrophy or fasciculations. Coordination: Ernarv-of-ewpv and tqta-[id number] testing normal. No dysmetria. Gait and Station: No obvious gait abnormality. No ataxia or instability. Extrapyramidal: Full facial expressions and blinking. No rigidity. Movements are appropriate with no tremor or abnormality. Speech: Normal; no dysarthria or tremor. Assessment & Plan Assessment & Plan (1) Epilepsy: Comment: Meds tried for epilepsy: Dilantin, Keppra, Lamotrigine, Topiramate Amb EEG at [facility] in 2024: B/L sharp waves with b/l seizure focus NCV/EMG LE (in office) Mild bilateral peroneal motor neuropathy with intact sensory response. 05/21/24.? EEG at off in Mar 2024: WNL Code(s): G40.909 - Epilepsy, unspecified, not intractable, without status epilepticus Category: Medical Qualifiers: Epilepsy type: unspecified Intractability: not intractable Status epilepticus: without status epilepticus Qualified Code(s): G40.909 - Epilepsy, unspecified, not intractable, without status epilepticus (2) Migraine without aura and without status migrainosus, not intractable: Comment: Meds tried for migraine: Topiramate, Ibuprufen Code(s): G43.009 - Migraine without aura, not intractable, without status migrainosus Category: Medical Plan Impression: a: Epilepsy b: Migraine without aura Rec: a: Levetiracetam 500mg bid b: Lamotrigine 150mg bid c: Topiramate 50mg bid d: Sumatriptan 50mg one a day as needed Her perception is that Keppra was giving her headache. At this point, she was advised to take her medicines on regular basis but dose of Keppra was decreased to 500 mg twice a day. Potentially, it could be stopped an alternate medicine like Xcopri can be started. Medications: New levetiracetam 500 mg PO BID 180 tabs 0RF Discontinued levetiracetam Discontinued Reason: Doctor's Order 750 mg PO BID 180 tabs 1RF Coding Level of Care Code Est Pt Level 3 (18584) Global (33584) Diagnoses Nonintractable epilepsy without status epilepticus, unspecified epilepsy type G40.909 Epilepsy type: unspecified Intractability: not intractable Status epilepticus: without status epilepticus Migraine without aura and without status migrainosus, not intractable G43.009
--- OUTSIDE RECORDS SUMMARY | 2025-01-07 18:27 | XMS_ITS | Encounter Summary ---
Author Organization [facility] Address [address] [place] [address] Phone Care Team Providers Care Bundle Clerk Name Role Phone Pamela Gutierrez MD Unavailable [email or web address] Madleine Romeo NP Primary Care Pr ovider Claritza Sena ESTATE PLANNING DIRECTOR Unavailable [email or web address] Claritza Sena ESTATE PLANNING DIRECTOR Unavailable [email or web address] Thalia Mckinney Primary Care Provider Reason for Referral * MRI/CAT Scan - Closed Specialty Diagnoses / Procedures Referred By Ryan murray Referred To Contact Radiology Diagnoses Locked-in state Procedures MRI Brain Madeline Romeo NP Phone: tel: fax: [email or web address] Referral ID Status Reason Start Date Expiration Date Visits Re quested Visits Authorized [id number] Closed 07/28/2022 1 1 Encounter Details Date Type Department Care Team (Latest Contact Info) Description 07/28/2022 Transcribe Orders Virtual Department [address] [place] [address] Madeline Romeo NP [address] [place] [address] [email or web address] Locked-in state (Primary Dx) Social History Tobacco [...] Care Team (Late st Contact Info) Description 02/10/2025 10:10 AM EST Office Visit [facility] [address] [place] [address] Geneva Reilly MD 22 [facility], [address] [place] [address] [email or web address] documented as of this encounter Results * [...] the reported symptoms identified. May Sonya Rashid BRUSH HOLDER INSPECTOR IMG MR HEAD/NECK Final Result documented in this encounter Visit Diagnoses Diagnosis Locked-in state- Primary Locked-in state documented in this encounter Care Teams Bundle Clerk Relationship Specialty Start Date End Date Madeline Romeo NP [email or web address] PCP - General Nurse Practitioner 04/11/22 03/31/24 Thalia Mckinney PA [address] [place] [address] [place] [phone] PCP - General Physician Launch Leader 04/01/24 Pamela Gutierrez MD [email or web address] Insurance Assigned Provider 10/01/21 11/04/22 Claritza Sena LCSW [address] [place] [address] [email or web address] [facility] Rn Long Term Care 11/23/23 12/19/23 Claritza Sena LCSW [address] [place] [address] [email or web address] [facility] R[facility] Long Term [facility] 03/04/24 04/09/24 documented as of this encounter Additional Source Comments The information contained in this document represents components of the legal health record. It is not the complete legal health record.[facility]
--- OUTSIDE RECORDS SUMMARY | 2025-01-07 18:27 | XMS_ITS | Encounter Summary ---
Author Organization [facility] Address [address] [place] [address] Phone Care Team Providers Care Housekeeper Caregiver Name Role Phone Thalia Mckinney Primary Care Provider Encounter Details Date Type Department Care Team (Latest Contact Info) Description 09/23/2024 Transcribe Orders Virtual Department [address] [place] [address] Thalia Moss Other gastritis without bleeding (Primary [...] file Not on file Not on file Bonding Supervisor Not on file Not on file Not on file documented as of this encounter Plan of Treatment Upcoming Encounters Date Type Department Care Team (Late st Contact Info) Description 02/10/2025 10:10 AM EST Office Visit [facility] [address] [place] [address] [place] [address] Geneva Reilly MD [address] [facility], [address] [place] [address] [email or web address] documented as of this encounter Results * [...] Primary documented in this encounter Care Teams Housekeeper Caregiver Relationship Specialty Start Date End Date Thalia Mckinney PA [address] [place] [address] [place] [phone] PCP - General Physician Oracle Architect 04/01/24 documented as of this encounter Additional Source Comments The information contained in this document represents components of the legal health record. It is not the complete legal health record.[facility]
--- OUTSIDE RECORDS SUMMARY | 2025-01-07 18:27 | XMS_ITS | Clinical Summary ---
Author Organization [facility] Address [address] [place] [phone] Phone Care Team Providers Care Manager Specialty Name Role Phone Thalia Mckinney Primary Care Provider Allergies Active Allergy Reactions Criticality Noted Date Comments Oxycodone-Acetaminophen Nausea And Vomiting Low Hydrocodone-Acetaminophen 03/21/2020 Medications phenytoin (DILANTIN) 100 MG ER capsule Take 2 capsules (200 mg total) by mouth 2 (two) times a day. 126 capsule 1 Active levETIRAcetam (KEPPRA) 100 mg/mL solution Take by mouth 2 (two) times a day. Active cyclobenzaprine (FLEXERIL) 10 MG tablet Take 1 tablet (10 mg total) by mouth 3 (three) times a day as needed. 15 tablet 3 Active lamoTRIgine (LAMICTAL) 100 MG IMMEDIATE release tablet Take 100 mg by mouth. 2 Active hydrocortisone- acetic acid (VOSOL-HC) otic solution INSTILL 2 DROPS INTO AFFECTED EAR(S) 4 TIMES A DAY 5 Active cetirizine (ZYRTEC) 10 MG tablet Take 10 mg by mouth. 3 Active busPIRone (BUSPAR) 10 MG tablet Take 15 mg by mouth. 4 Active omeprazole (PRILOSEC) 20 MG capsule Take 1 capsule by mouth every morning. 5 Active risperiDONE (RISPERDAL) 1 MG tablet Take 1 mg by mouth. 4 Active topiramate (TOPAMAX) 25 MG tablet Take 25 mg by mouth. 3 Active oxyCODONE 5 MG immediate release tablet Take one tablet prior to procedure. Do not take on empty stomach. 10 tablet 5 Active LORazepam (ATIVAN) 1 MG tablet Take one tablet prior to procedure. Do not take on empty stomach. 1 tablet 5 Active triamcinolone acetonide 0.1 % ointment Apply topically 2 (two) times a day for 14 days. 80 g 5 Active estradioL (ESTRACE) 0.01 % (0.1 mg/gram) vaginal cream Place 1 gram vaginally each night for 7 nights and then 1 gram twice weekly afterwards 42.5 g 3 5 Active Hospital, Clinic, or Other Facility Administered Medication Ordered Dose Route Frequency Start Date End Date Status levonorgestreL (MIRENA) 21 mcg/24hr (up to 8 yrs) 52 mg intrauterine device 1 eachIndications:Encounter for insertion of intrauterine contraceptive device,Menorrhagia with regular cycle 1 each Utrn Every 8 years 12/30/2024 Active Active Problems Problem Noted Date Diagnosed Date Menorrhagia with regular cycle 12/06/2024 Overview (12/30/2024): Pelvic US reviewed, within normal limits Endometrial biopsy obtained LNG-IUD placed Assessment & Plan (12/06/2024 8:17 PM EDT): -Reviewed etiologies of abnormal uterine bleeding, including anatomic such as polyp, fibroid, or adenomyosis; ovulatory dysfunction due to weight, stress, PCOS, or endocrine abnormality; malignancy of cervix or uterus; or other unspecified etiology. -Pap NILM 2023 -Plan EMB, pre-meds (oxycodone/ativan) sent, patient will have ride day of procedure -Plan TVUS to evaluate for structural issues, order placed -Reviewed methods of management including including hormonal medications and surgical options. -Patient would like to have IUD placed at time of EMB -Follow up after evaluation complete to discuss next steps if indicated Vulvar irritation 12/06/2024 Assessment & Plan (12/06/2024 8:20 PM EDT): UA w/reflex culture ordered Vaginitis panel ordered Mycoplamsa/ureaplamsa ordered Plan trial of topical steroid for vulvar irritation, rx for triamcinolone sent Will follow up as indicated after testing resulted Epidermal inclusion cyst 11/05/2019 Assessment & Plan (11/05/2019 9:04 AM EDT): Incised and secretions removed, care discussed; may reaccumulate Resolved Problems Problem Noted Date Diagnosed Date Resolved Date Abnormal uterine bleeding 12/30/2024 Assessment & Plan (12/30/2024 11:45 AM EST): Pelvic US reviewed, within normal limits Endometrial biopsy obtained LNG-IUD placed Encounters Date Type Department Care Team Description 12/30/2024 9:30 AM EST Procedure visit [facility] [address] [place] [address] [place] [address] Geneva Reilly MD Encounter for insertion of intrauterine contraceptive device (Primary Dx); Menorrhagia with regular cycle 12/29/2024 [facility] RISK SCORES SYSTEM GENERATED External System Generated Encounter [address] [place] [address] Unknown, Unknown, 12/16/2024 11:08 AM EDT - 12/16/2024 11:59 PM EDT Hospital Encounter [facility] [place] Ul[facility]ound [address] [place] [address] Geneva Reilly MD Discharge Disposition: Home or Self Care 12/05/2024 2:00 PM EDT Office Visit [facility] [address] [place] [address] [place] [address] Geneva Reilly MD Menorrhagia with regular cycle (Primary Dx); Vulvar irritation 11/24/2024 [facility] RISK SCORES SYSTEM GENERATED External System Generated Encounter [address] [place] [address] Unknown, Radha, 10/23/2024 10:48 AM EDT - 10/23/2024 11:59 PM EDT Hospital Encounter [facility] [address] [place] [address] Thalia Mckinney PA Discharge Disposition: Home or Self Care from Last 3 Months Immunizations Immunization Administration [...] file Not on file Not on file Tie Binder Not on file Not on file Not on file Last Filed Vital Signs Vital Sign Reading Time Taken Comments Blood Pressure 108/72 12/30/2024 9:19 AM EST Pulse 90 04/11/2022 6:47 PM EST Temperature 37 C (98.6 F) 04/11/2022 4:41 PM EST Respiratory Rate 20 04/11/2022 6:47 PM EST Oxygen Saturation 98% 04/11/2022 6:47 PM EST Inhaled Oxygen Concentration - - Weight 90.7 kg (200 lb) 04/11/2022 6:47 PM EST Height 162.6 cm (5' 4 ) 12/30/2024 9:19 AM EST Body Mass Index 34.33 04/11/2022 6:47 PM EST Plan of Treatment Upcoming Encounters Date Type Department Care Team (Late st Contact Info) Description 02/10/2025 10:10 AM EST Office Visit [facility] [address] [place] [address] Geneva Reilly MD [address] [facility], [address] [place] [address] [email or web address] Health Maintenance Due Date Last Done Comments DEPRESSION SCREENING 1999 HIV ONE-TIME SCREENING (18-6 5 YEARS) 08/19/2005 PNEUMOCOCCAL VACCINES (0-49 years) (1 of 2 - PCV) 08/19/2006 PHENYTOIN (DILANTIN) LEVEL 03/21/2021 03/21/2020 SCREENING FOR DIABETES 03/21/2023 03/21/2020 COVID-19 VACCINE ( - 2024-2 6 season) 2024 06/24/2020, 06/03/2020 SMOKING Hx and SMOKELESS TOBACCO SCREENING 12/05/2025 12/05/2024 PAP SMEAR 02/05/2027 02/06/2024 IUD 12/30/2032 12/30/2024 Adult Td,Tdap Booster 03/26/2033 03/26/2023 , 09/01/2009 HEPATITIS C SCREENING Completed 05/09/2021 INFLUENZA VACCINE Completed 12/22/2024, 01/10/2024, 01/10/2024 HEPATITIS A VACCINES Aged Out No long er eligible based on patient's age to complete this topic HIB VACCINES Aged Out No longer eligi ble based on patient's age to complete this topic IPV VACCINES Aged Out No longer eligi ble based on patient's age to complete this topic MENINGOCOCCAL VACCINES (ACWY) Aged Out No longer eligible based on patient's age to complete this topic MENINGOCOCCAL VACCINES (B) Aged Out N o longer eligible based on patient's age to complete this topic Medical Devices Implanted Type Area Lease Out Man Device Identifier Shelf Expiration Date Model / Serial / Lot Iud Implanted:05/2024 (Quantity not on file) Intrauterine Device Procedures Procedure Name Priority Date/Time Associated Diagnosis Comments TISSUE EXAM Routine 12/30/2024 11:43 AM EST Menorrhagia with regular cycle US PELVIS TRANSABDOMINAL PLUS TRANSVAGINAL Routine 12/16/2024 11:39 AM EDT Menorrhagia with regular cycle URINE SEDIMENT Routine 12/05/2024 4:16 PM EDT URINALYSIS WITH REFLEX TO URINE CULTURE Routine 12/05/2024 4:16 PM EDT Vulvar irritation UREAPLASMA PCR Routine 12/05/2024 3:17 PM EDT Vulvar irritation MYCOPLASMA HOMINIS PCR Routine 3:16 PM EDT Vulvar irritation HC NFCT DS BCT VAGINOSIS&VAGINITIS MULT AMP PROBE Routine 12/05/2024 3:16 PM EDT Vulvar irritation FL (SPEECH) VIDEO SWALLOW STUDY Routine 10/23/2024 12:02 PM EDT Other gastritis without bleeding PAP TEST Routine 02/06/2024 12:00 AM EST DILANTIN LEVEL STAT 03/21/2020 3:48 PM EST from Last 3 Months or Most Recently Relevant to Health Maintenance Results * Tissue Exam (12/30/2024 11:43 AM EST) Final Pathologic Diagnosis A. ENDOMETRIUM: Inactive endometrium with stromal breakdown 12/31/2024 12:20 PM [facility] at 1220 EST Clinical History abnormal uterine bleeding 12/31/2024 12:20 PM [facility] Gross Description A. ENDOMETRIUM: Received in formalin is a 0.7 x 0.6 x 0.3 cm aggregate of irregular whittington-pink soft tissue fragments admixed with blood-tinged mucus and dark red blood clot which is submitted in toto in a single cassette labeled A1. Grossed by: CLEO Maya, OLVIN([facility]) 12/31/2024 12:20 PM [facility] Grossed By oMose Robledo 12/31/2024 12:20 PM [facility] Result Priority Level Routine 12/31/2024 12:20 PM [facility] Disclaimer By their signature above, the pathologist listed as making the Final Diagnosis certifies that they have personally reviewed the case and confirmed the diagnosis. All slides and stains were of sufficient quality to establish the diagnosis, unless otherwise stated. Due to loss of elastic tension and/or tissue shrinkage in formalin, the clinical sizes of tissue specimens may be larger than those provided in this report. 12/31/2024 12:20 PM [facility] Tissue - General (Endometrium) Non-Blood Collection / Unknown 12/30/2024 11:43 AM EST 12/30/2024 11:43 AM EST us Geneva Reilly MD LAB PATHOLOGY ORDERABLES Final Result [address] [address] * US PELVIS TRANSABDOMINAL PLUS TRANSVAGINAL (12/16/2024 11:39 AM EDT) Anatomical Region Laterality Modality Pelvis, Uterus/Adnexa Ultrasound 12/16/2024 11:4 0 AM EDT Impressions 12/18/2024 1:15 PM EDT Unremarkable [facility] study with no myometrial masses and unremarkable adnexae. The endometrium appears normal. The posterior myometrium is significantly thicker than the anterior myometrium. Clinical correlation is recommended as this finding can be associated with adenomyosis. Narrative 12/18/2024 1:15 PM EDT US PELVIS TRANSABDOMINAL AND TRANSVAGINAL Referring clinician's provided indication for this examination in Epic: Menorrhagia Procedure: US PELVIS TRANSABDOMINAL AND TRANSVAGINAL 12/16/2024 11:16 AM US Indications: Menorrhagia. Comparison: No relevant recent comparisons. Technique: Transabdominal sonography of the pelvis was performed. In addition, transvaginal imaging was performed to better evaluate the adnexae and ovaries. Color Doppler imaging was performed to assess vascularity. No 3-D images were acquired. Reported LMP: FINDINGS: Uterus: The uterus measurements acquired; 7.11 cm x 4.92 cm x 3.13 cm with volume of 57.33 ml. The uterus is anteverted in its positioning. The myometrium is homogeneous. Endometrium: The endometrium measures 0.67 cm and appears grossly normal. No endometrial masses. No fluid is identified within the endometrial canal. No focal cervical masses. Ovaries: The right ovary measures 2.68 cm x 1.69 cm x 1.73 cm with volume of 4.10 ml. Appears grossly normal Right Adnexa: wnl The left ovary measures 2.99 cm x 1.96 cm x 1.99 cm with volume of 6.11 ml. Appears grossly normal Left Adnexa: wnl Cul de Sac: There is no evidence of free pelvic fluid. Tech Comments: Procedure Note Steven Brown MD - 12/18/2024 US PELVIS TRANSABDOMINAL AND TRANSVAGINAL Referring clinician's provided indication for this examination in Epic:Menorrhagia Procedure: US PELVIS TRANSABDOMINAL AND TRANSVAGINAL 12/16/2024 11:16AM US Indications: Menorrhagia. Comparison: No relevant recent comparisons. Technique: Transabdominal sonography of the pelvis was performed. Inaddition, transvaginal imaging was performed to better evaluate theadnexae and ovaries. Color Doppler imaging was performed to assessvascularity. No 3-D images were acquired. Reported LMP: FINDINGS: Uterus: The uterus measurements acquired; 7.11 cm x 4.92 cm x 3.13 cm with volumeof 57.33 ml. The uterus is anteverted in its positioning. Themyometrium is homogeneous. Endometrium: The endometrium measures 0.67 cm and appears grossly normal. Noendometrial masses. No fluid is identified within the endometrialcanal. No focal cervical masses. Ovaries: The right ovary measures 2.68 cm x 1.69 cm x 1.73 cm with volume of 4.10ml. Appears grossly normal Right Adnexa: wnl The left ovary measures 2.99 cm x 1.96 cm x 1.99 cm with volume of 6.11ml. Appears grossly normal Left Adnexa: wnl Cul de Sac: There is no evidence of free pelvic fluid. Tech Comments: IMPRESSION: Unremarkable [facility] study with no myometrial masses and unremarkable adnexae.The endometrium appears normal. The posterior myometrium issignificantly thicker than the anterior myometrium. Clinical correlationis recommended as this finding can be associated with adenomyosis. Geneva Reilly MD IM US PELVIS Final Result * (ABNORMAL) Urinalysis w/reflex Urine Culture (12/05/2024 4:16 PM EDT) COLOR Yellow Yellow [facility] CLARITY HAZY [facility] GLUCOSE Negative Negative [facility] BILI 1+(A) Negative [facility] KETONES Trace(A) Negative [facility] SPECIFIC GRAVITY 1.025 1.005 - 1.030 [facility] BLOOD 3+(A) Negative [facility] PH 6.0 5.0 - 8.0 [facility] Protein-UA 1+(A) Negative [facility] NITRITE Negative Negative [facility] Leukocyte esterase, ur Negative Negative [facility] Urine (Urine) 12/05/2024 4:1 6 PM EDT 12/05/2024 5:59 PM EDT us Geneva Reilly MD LAB URINE ORDE RABLES Final Result Performing Organization Address City/[facility]/ZIP Co de Phone Number [address] [address] * (ABNORMAL) Urine sediment (12/05/2024 4:16 PM EDT) WBC NONE SEEN NONE SEEN /hpf [facility] RBC 3-5(A) NONE SEEN /hpf [facility] URINE EPITHELIAL NONE SEEN NONE SEEN [facility] MUCUS 1+(A) NONE SEEN /hpf [facility] BACTERIA NONE SEEN NONE SEEN /hpf [facility] CRYSTALS 2+ [facility] Comment:Calcium Oxalate 12/05/2024 4:16 PM EDT 12/05/2024 5:59 PM EDT us Geneva Reilly MD LAB URINE ORDE RABLES Final Result [address] [address] * Ureaplasma PCR (12/05/2024 3:17 PM EDT) SPECIMEN SOURCE Vaginal [facility] Comment:Corrected on 12/09 A T 1313: previously reported as VAGINAL UREAPLS UREALYTICUM Negative Not Applicable [facility] UREAPLASMA PARVUM Negative Not Applicable [facility] Comment: (NOTE) ADDITIONAL INFORMATION This test was developed and its performance characteristics determined by [facility] in a manner consistent with CLIA requirements. This test has not been cleared or approved by the U.S. Food and Drug Administration. Other (Other fluid (specify below)) 12/05/2024 3:17 PM EDT 12/05/2024 5:57 PM EDT Geneva roper MD MICROBIOLOGY - GENERAL ORDERABLES Edited Result - Final Performing Organization Address City/[facility]/ZIP Co de Phone Number [facility] [address] [place] [address] * Vaginitis Panel (12/05/2024 3:16 PM EDT) Bacterial Vaginosis Negative Negative [facility] Amanda Species Not Detected Not Detected [facility] Amanda glabrata Not Detected Not Detected [facility] Trichomonas Vaginalis Not Detected Not Detected [facility] Other (Vaginal) 12/05/2024 3 :16 PM EDT 12/05/2024 5:58 PM EDT Geneva Reilly MD LAB GENERAL OR DERABLES Final Result Performing Organization Address City/[facility]/ZIP Co de Phone Number [facility] [address] [place] [address] * Mycoplasma Hominis PCR (12/05/2024 3:16 PM EDT) SPECIMEN SOURCE vaginal [facility] RESULT Negative Not Applicable [facility] Comment: (NOTE) ADDITIONAL INFORMATION This test was developed and its performance characteristics determined by [facility] in a manner consistent with CLIA requirements. This test has not been cleared or approved by the U.S. Food and Drug Administration. Other (Vaginal) 12/05/2024 3 :16 PM EDT 12/05/2024 5:57 PM EDT Geneva Reilly MD MICROBIOLOGY - GENERAL ORDERABLES Final Result [facility] [address] [place] [address] * FL (Speech) Video Swallow Study (10/23/2024 [...] report originally createdby Waylon Herbert. Thalia BAH IM FL EXAMS Final Result * Pap Test (02/06/2024 12:00 AM EST) Report [address] [address] Executive Sales Manager: Semaj Marcus MD [facility] Cytology Report FINAL DIAGNOSIS A. PAP SMEAR (THIN PREP) CE: SPECIMEN ADEQUACY: Satisfactory for evaluation; transformation zone present. INTERPRETATION: NEGATIVE FOR INTRAEPITHELIAL LESION OR MALIGNANCY. Due to blood, the specimen was reprocessed with 10% Glacial Acetic Acid to increase cellularity. This specimen was analyzed by the automated ThinPrep Imaging System (Portfolium.) and manually rescreened by a cut out worker and/or pathologist. Electronically Signed Out By: Semaj [...] SMEAR (THIN PREP) CE Patient Name: DANAE JOLLEY : 1985 (Age: 38) Sex: F Institution: [facility] Location: [facility] Date of Collection: 02/06/2024 Date of Reported: 02/13/2024 15:36 Results to: Thalia Rios [facility] Final Diagnosis A. PAP SMEAR (THIN PREP) CE: SPECIMEN ADEQUACY: Satisfactory for evaluation; transformation zone present. INTERPRETATION: NEGATIVE FOR INTRAEPITHELIAL LESION OR MALIGNANCY. Due to blood, the specimen was reprocessed with 10% Glacial Acetic Acid to increase cellularity. This specimen was analyzed by the automated ThinPrep Imaging System (Portfolium.) and manually rescreened by a cut out worker and/or pathologist. [facility] Conversion Type (Conversion Source) 02/06/2024 02/08/2024 9:05 AM EST us Thalia BAH CYTOLOGY ORDER RASHAUN Edited Result - Final Performing Organization Address City/[facility]/ZIP Co de Phone Number [address] [address] * (ABNORMAL) Dilantin level (03/21/2020 3:48 PM EST) DILANTIN <0.8(L) 10 - 20 ug/mL [facility] Blood 03/21/2020 3:48 PM EST 03/21/2020 3:59 PM EST us Ga Sánchez MD LAB BLOOD BKR ORDERABLES Final Result Performing Organization Address City/[facility]/ZIP Co de Phone Number [facility] [address] [place] [address] from Last 3 Months or Most Recently Relevant to Health Maintenance [place] [address] [place] [address] [employer] [facility] [place] [address] [place] [address] [facility] [place] [address] [place] [address] ACO Care Teams Manager Specialty Relationship Specialty Start Date End Date Thalia Mckinney PA [address] [place] [address] [place] [address] PCP - General Physician Sales Office Administrator 04/01/24 Additional Source Comments The information contained in this document represents components of the legal health record. It is not the complete legal health record.[facility]
--- OUTSIDE RECORDS SUMMARY | 2025-01-07 18:27 | XMS_ITS | Clinical Summary ---
Author Organization [facility] Address [address] [place] [phone] Care Team Providers Care Typist Name Role Phone Unavailable Primary Care Provider [...]
--- OUTSIDE RECORDS SUMMARY | 2025-01-07 18:27 | XMS_ITS | Clinical Summary ---
Author Organization [facility] Address [address] [place] [address] Phone Care Team Providers Care Corn Sheller Name Role Phone Thalia Moss Primary Care [...] patient's age to complete this topic Insurance [facility] [employer] Care Teams Corn Sheller Relationship Specialty Start Date End Date Thalia Moss PA [address] [place] [address] [address] [place] [address] PCP - General 07/23/24
--- OUTSIDE RECORDS SUMMARY | 2025-01-07 18:27 | XMS_ITS | Encounter Summary ---
Author Organization [facility] Address [address] [place] [phone] Phone Care Team Providers Care Tail Trimmer Name Role Phone Pamela Gutierrez MD Unavailable [email or web address] Sonya WHITAKER Primary Care Pr ovider Claritza Sena ELECTRICAL TRANSMISSION ENGINEER Unavailable [email or web address] Claritza Sena ELECTRICAL TRANSMISSION ENGINEER Unavailable [email or web address] Thalia Mckinney Primary Care Provider Encounter Details Date Type Department Care Team (Late st Contact Info) Description 07/28/2022 Procedure Pass [address] [place] [address] Social History Tobacco Use Types Packs/Day Years [...] Visit [facility] [address] [place] [address] Geneva Reilly MD [address] [facility], [address] [place] [address] [email or web address] documented as of this encounter Visit Diagnoses Not on filedocumented in this encounter Care Teams Tail Trimmer Relationship Specialty Start Date End Date Maya Rashid Madeline JULIANNE Hassan [email or web address] PCP - General Nurse Practitioner 04/11/22 03/31/24 Thalia Mckinney PA [address] [place] [address] PCP - General Physician Toe Trimmer 04/01/24 Pamela Gutierrez MD [email or web address] Insurance Assigned Provider 10/01/21 11/04/22 Claritza Sena, ELECTRICAL TRANSMISSION ENGINEER [address] [place] [address] [email or web address] [facility] Medical Secretary Teacher 11/23/23 12/19/23 Claritza Sena LCSW [address] [place] [address] [email or web address] [facility] Medical Secretary Teacher 03/04/24 04/09/24 documented as of this encounter Additional Source Comments The information contained in this document represents components of the legal health record. It is not the complete legal health record.[facility]
--- OUTSIDE RECORDS SUMMARY | 2025-01-07 18:27 | XMS_ITS | Encounter Summary ---
Author Organization [facility] Address [address] [place] [id number] Phone Care Team Providers Care Cotton Ginner Name Role Phone Pamela Gutierrez MD Unavailable [email or web address] Madeline Sonya WHITAKER Primary Care Pr ovider Claritza Sena QUALITY ASSURANCE INSPECTOR Unavailable [email or web address] Claritza Sena QUALITY ASSURANCE INSPECTOR Unavailable [email or web address] Thalia Mckinney Primary Care Provider Encounter Details Date Type Department Care Team (Latest Contact Info) Description 09/21/2022 Transcribe Orders Virtual Department [address] [place] [address] Madeline Romeo NP [address] [place] [address] [email or web address] Chronic sinusitis, unspecified location (Primary Dx) Social [...] Visit [facility] [address] [place] [address] Geneva Reilly MD [address] [facility], [address] [place] [address] [email or web address] documented as of this encounter Visit Diagnoses Diagnosis Chronic sinusitis, unspecified location- Primary documented in this encounter Care Teams Cotton Ginner Relationship Specialty Start Date End Date Madeline Romeo NP [email or web address] PCP - General Nurse Practitioner 04/11/22 03/31/24 Thalia Mckinney PA [address] [place] [address] [place] [id number] PCP - General Physician Heavy Equipment Engine Mechanic 04/01/24 Pamela Gutierrez MD [email or web address] Insurance Assigned Provider 10/01/21 11/04/22 Claritza Sena LCSW [address] [place] [id number] [email or web address] PHC Classics Teacher 11/23/23 12/19/23 Claritza Sena LCSW [address] [place] [id number] [email or web address] PHC Classics Teacher 03/04/24 04/09/24 documented as of this encounter Additional Source Comments The information contained in this document represents components of the legal health record. It is not the complete legal health record.[facility]
== END 2025-01-07 15:19 | disposition home or self-care (01) ==
LOC: HO.HSM 15:08
PROVIDERS: PCP Physician Assistant; Visit Provider Psychiatry & Neurology Neurology
DX: G40.909 Epilepsy, unspecified, not intractable, without status epilepticus (principal); G43.009 Migraine without aura, not intractable, without status migrainosus
CPT/HCPCS: 99213; G2211